=== PATIENT | male | born 1985 | race African-American/Black ===

== ENCOUNTER 2016-10-05 10:34 | Emergency (ER) | payer OTHER ==
[~2016-10-05] VITALS: Ht 170.2 cm; Wt 102.2 kg
[2016-10-05 10:41] VITALS: TEMP 36.8; Ht 170.2 cm; Wt 102.2 kg
[2016-10-05] MEDS ORDERED: MoRPHine SULFATE 4 MG/ML 1 ML CARP\\VIAL IV STA (11:02)
[2016-10-05] MEDS ORDERED: ONDANSETRON INJ 2 MG/ML 2 ML VIAL IV STA (11:02)
[2016-10-05] MEDS ORDERED: ESCI1TAB10 PO (11:03)
[2016-10-05] MEDS ORDERED: ARIP1TAB8 PO (11:03)
[2016-10-05] MEDS ORDERED: CALC625T4 PO (11:03)
[2016-10-05] MEDS ORDERED: BNT20 PO (11:03)
[2016-10-05 11:22] LABS: BASO % 0.2 %; BASO ABS # 0.01 K/uL (0-0.2); COMPLETE YES; EOS % 1.5 %; HEMATOCRIT 40.9 % (42-52); IG% 0.4 %; LYMPH ABS # 1.62 K/uL (1.2-3.4); MEAN CELL VOLUME 86.3 fL (80-100); MEAN CORPUSCULAR HEMOGLOBIN 29.3 pg (25-34); MEAN PLATELET VOLUME 9.2 fL (7.4-10.4); MONO % 5.9 %; PLATELET COUNT 249 K/uL (130-400); RED BLOOD COUNT 4.74 M/uL (4.7-6.1); WHITE BLOOD COUNT 5.22 K/uL (4.8-10.8)
[2016-10-05 12:15] LABS: ALKALINE PHOSPHATASE 102 U/L (45-117); ALT/SGPT 29 U/L (12-78); BLOOD UREA NITROGEN 14 mg/dl (7-18); BUN/CREATININE RATIO 14.4 (10-20); CALCIUM 9.8 mg/dl (8.5-10.1); CARBON DIOXIDE 23 mmol/L (21-32); CHLORIDE 102 mmol/L (98-107); CREATININE 0.96 mg/dl (0.60-1.40); GLUCOSE 95 mg/dl (70-99); SODIUM 138 mmol/L (136-145)
[2016-10-05] MEDS ORDERED: OPTIRAY 320 IV PRN (12:15)
[2016-10-05 13:09] LABS: AST/SGOT 17 U/L (15-37)
[2016-10-05 14:47] LABS: URINE APPEARANCE CLEAR (CLEAR); URINE BILIRUBIN NEG (NEG); URINE COLOR YELLOW; URINE NITRITE NEG (NEG); URINE PH 5.5 (4.5-7.5); URINE SPECIFIC GRAVITY 1.006 (1.000-1.030); UROBILINOGEN NEG (NEG)
--- NOTE | 2016-10-05 14:57 | DIAGNOSTIC IMAGING REPORT ---
ABDOMEN AND PELVIS CT WITH IV AND ORAL CONTRAST CT DOSE: 661.56 mGy.cm HISTORY: Right lower quadrant abdominal pain. TECHNIQUE: Multiaxial CT images of the abdomen and pelvis were performed following the use of intravenous and oral contrast. COMPARISON STUDY: None. FINDINGS: The lung bases are clear. The liver, spleen, gallbladder, pancreas, kidneys, and adrenal glands are within normal limits. No bowel wall thickening or obstruction. The pelvic organs are unremarkable. No suspicious lytic or blastic osseous lesions. Small fat-containing umbilical hernia. A right spermatic cord is not identified raising the possibility of prior right-sided orchiectomy. Normal appendix. IMPRESSION: No bowel wall thickening or obstruction. Normal appendix. Electronically signed by: Mark Maciel M.D. 10/05/2016 2:55 PM Dictated Date/Time: 10/05/2016 2:46 PM
[2016-10-05 15:06] LABS: MANUAL MICROSCOPIC REQUIRED? NO; REVIEW REQ? NO
[2016-10-05 16:06] VITALS: BP 143/95; PULSE 78; O2SAT 98
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
== END 2016-10-05 16:08 | disposition home or self-care (01) ==
LOC: C.EDB 10:39 → C.EDC 16:08
DX: R10.31 Right lower quadrant pain (principal); F32.9 Major depressive disorder, single episode, unspecified; Z79.899 Other long term (current) drug therapy; K43.9 Ventral hernia without obstruction or gangrene

== ENCOUNTER 2019-01-10 15:26 | Inpatient (IN) ==
[2019-01-10] MEDS ORDERED: MoRPHine SULFATE 4 MG/ML 1 ML CARP\\VIAL IV PRN (15:41)
[2019-01-10] MEDS ORDERED: ONDANSETRON INJ 2 MG/ML 2 ML VIAL IV STA (15:41)
[2019-01-10] MEDS ORDERED: SODIUM CHLORIDE 0.9% 1000ML 1,000 ML IV SCH ×2 (15:45→18:40)
--- NOTE | 2019-01-10 15:58 | XRay Report ---
XR chest 1V portable CLINICAL HISTORY: abd pain pain COMPARISON STUDY: No previous studies for comparison. FINDINGS: The bones soft tissues and hemidiaphragms are normal. The cardiomediastinal silhouette is n ormal. The lungs are clear. The pulmonary vasculature is normal. IMPRESSION: Negative chest. The above report was generated using voice recognition software. It may contain grammatical, syntax or spelling errors. Electronically signed by: Balaji Puente M.D. 01/10/2019 3:56 PM
[2019-01-10 16:27] LABS: iSTAT Ionized Calcium 1.19 mmol/l (1.12-1.32); iSTAT Potassium 5.4 mEq/L (3.3-5.0)
[2019-01-10 16:44] LABS: Basophils # (auto) 0.03 K/uL (0-0.2); Basophils % (auto) 0.3 %; Eosinophils # (auto) 0.02 K/uL (0-0.5); Eosinophils % (auto) 0.2 %; Hematocrit (blood only) 48.1 % (42-52); Hemoglobin 17.3 g/dL (14.0-18.0); Immature Granulocytes # (auto) 0.01 K/uL (0.00-0.02); Immature Granulocytes % (auto) 0.1 %; Lymphocytes # (auto) 1.57 K/uL (1.2-3.4); Lymphocytes % (auto) 17.3 %; Mean Corpuscular Volume 84.1 fL (80-100); Mean Platelet Volume 11.1 fL (7.4-10.4); Monocytes # (auto) 0.54 K/uL (0.11-0.59); Neutrophils # (auto) 6.89 K/uL (1.4-6.5); Neutrophils % (auto) 76.1 %; Platelet Count 267 K/uL (130-400); RDW Coefficient of Variation 12.4 % (11.5-14.5); RDW Standard Deviation 37.5 fL (36.4-46.3); Red Blood Count 5.72 M/uL (4.7-6.1); White Blood Count 9.06 K/uL (4.8-10.8)
[2019-01-10] MEDS ORDERED: IOVERSOL 100ml IV PRN (16:44)
--- NOTE | 2019-01-10 17:02 | CT Scan Report ---
CT abd pelvis IV con only CLINICAL HISTORY: Abdominal pain and vomiting COMPARISON STUDY: 10/05/2016 TECHNIQUE: The patient was scanned in a dynamic helical fashion during intravenous administration of 93 cc Optiray 320. A dose lowering technique was utilized adhering to the principles of ALARA. CT DOSE: 347.19 mGy.cm FINDINGS: Lower chest: The heart is normal in size and configuration, without pericardial effusion. The lung ba ses and pleural spaces are clear. Liver: The contrast-enhanced liver is normal in size, contour, and attenuation. There is no intrahepa tic biliary ductal dilatation. The hepatic veins and portal veins are patent. Gallbladder: Unremarkable. Spleen: Normal in size and attenuation. Pancreas: Unremarkable. Adrenal glands: Unremarkable. Kidneys: There is symmetric renal cortical enhancement. The kidneys are normal in size without hydron ephrosis. Bowel: There are no transition zones indicate bowel obstruction. The appendix appears normal. There i s no acute diverticulitis. Peritoneum: There is no intraperitoneal free air or abdominal ascites. There is a small fat-containin g umbilical hernia which contains a knuckle of small bowel. This is nonobstructing. There is rectus d iastases. Vasculature: The abdominal aorta is normal in course and caliber. Adenopathy: None. Pelvic viscera: The bladder, and pelvic viscera are unremarkable. Skeletal structures: No destructive osseous lesions are seen. IMPRESSION: 1. No acute intra-abdominal or pelvic findings 2. No evidence of bowel obstruction. No evidence of free air 3. Normal appendix. No evidence of diverticulitis. 4. Rectus diastases. Small fat-containing umbilical hernia containing a knuckle of small bowel. There is no current evidence of obstruction Electronically signed by: Elvis Zuluaga M.D. 01/10/2019 5:01 PM
[2019-01-10] MEDS ORDERED: SODIUM CHLORIDE 0.9% 1000ML 1,000 ML IV ONE (17:05)
[2019-01-10] MEDS ORDERED: NovoLIN-R INSULIN PER UNIT CHARGE IV STA (17:10)
[2019-01-10 17:11] LABS: Alanine Aminotransferase 25 U/L (12-78); Albumin Globulin Ratio 0.9 (0.9-2); Albumin Level 4.5 gm/dl (3.4-5.0); Alkaline Phosphatase 123 U/L (45-117); BUN Creatinine Ratio 15.4 (10-20); Bilirubin,Total 0.6 mg/dl (0.2-1); Blood Urea Nitrogen 23 mg/dl (7-18); Calcium 9.9 mg/dl (8.5-10.1); Carbon Dioxide 14 mmol/L (21-32); Chloride 104 mmol/L (98-107); Creatinine Clr Calc Pharmacy 72.2 ml/min; Est GFR (African American) 69.8; Est GFR (Non-African American) 60.2; Globulin 5.1 gm/dl (2.5-4.0); Glucose 407 mg/dl (70-99); Sodium 132 mmol/L (136-145); Total Protein 9.6 gm/dl (6.4-8.2)
[2019-01-10 17:26] LABS: Aspartate Aminotransferase 14 U/L (15-37)
--- NOTE | 2019-01-10 18:13 | Emergency Department Note ---
Entered by Glo Madera acting as a scribe for Catarino Young DO History of Present Illness General Chief complaint: Abdominal Pain Stated complaint: VOMITING,ABD PAIN,R/O BOWEL OBSTRUCTION Source: patient History of Present Illness Provider complaint: vomiting Onset (ago): hour(s) (today) Location: left and right Maximum Pain Intensity: 9 Quality: + other (vomiting) Associated symptoms: + other (abdominal pain, generalized pain ) The patient is a 33 year old female who presents to the Emergency Department with complaints of vomiting today. The patient states that he has had this in the past and states that he had gastroenteritis at this time. He denies vomiting blood. He reports having generalized pain and abdominal pain, but denies having fevers or chills. He states that his last bowel movement was 3 days ago. The patient reports a history of stomach surgery for cancer. The patient states that he did not have a bowel obstruction after his surgery. He states that he was evaluated at the [place] [facility] but states that he was sent here as he was unable to get blood work and an X-Ray done at the [place] [facility]. Home Medications Home Medications Medication Instructions Recorded Confirmed Type chlorpromazine 50 mg PO HS 01/10/19 01/10/19 History escitalopram oxalate 30 mg PO DAILY 01/10/19 01/10/19 History lithium carbonate 450 mg PO HS 01/10/19 01/10/19 History ranitidine HCl 150 mg PO BID 01/10/19 01/10/19 History Allergies Allergy/AdvReac Type Severity Reaction Status Date / Time shellfish derived Allergy Intermediate throat Verified 01/10/19 17:57 closes Past Med/Surg History Medical History Major depression with psychotic features (Chronic) Dissociative identity disorder (Chronic) PTSD (post-traumatic stress disorder) (Chronic) History of stomach cancer (Chronic) age 17 Depression (Chronic) Stomach cancer (Acute) Surgical History S/P gastric surgery (Chronic) hx of removal of stomach cancer at age 17 per pt. Family History Mother Diabetes Brother Diabetes Aunt Diabetes Social History Preferred Language: Tajik Communication Ability: Effective Relief Pharmacist Required: No Beliefs That Will Affect Care: Yazidism Current Living Situation: Other Current Living Situation Comment: prisoner Other Information That Helps Us Care for You: No Feels Safe at Home: No Safety Concerns: Feels Safe At This Time Smoking Status: Never smoker Do You Dip or Chew Tobacco: No Second Hand Exp osure: No Tobacco Cessation Education Requested by Patient: No Hx Alcohol Use: No Hx Substance Use: No Review of Systems See HPI for pertinent positives & negatives. and A total of 10 systems reviewed and were otherwise negative Physical Exam Vital Signs Vital Signs - 24 hr 01/10/19 15:35 01/10/19 16:43 01/10/19 17:30 Temperature 36.5 C Temperature Source Oral Sepsis Recent Fever Within 48 Hours No Sepsis New/Unexplained Change in Mental Status No Sepsis Action Taken by Nursing No Action Required Pulse Rate 106 H Pulse Rate [Apical] 90 Pulse Rate from SpO2 Sensor Pulse Rhythm Regular Pulse Rhythm [Apical] Pulse Strength Normal Pulse Strength [Apical] Respiratory Rate 18 16 Respiratory Effort / Characteristics Non-Labored Spontaneous Respiratory Depth Normal Respiratory Pattern Regular Blood Pressure 130/84 Blood Pressure [Left Arm] Blood Pressure [Right Arm] 143/92 H Blood Pressure Mean 99 Blood Pressure Mean [Left Arm] Blood Pressure Mean [Right Arm] 109 Blood Pressure Position Sitting Blood Pressure Position [Left Arm] Blood Pressure Position [Right Arm] Pulse Oximetry 97 97 97 Pulse Oximetry [Left Index Finger] Oxygen Delivery Method Room Air Room Air Room Air Oxygen Delivery Method [Left Index Finger] 01/10/19 18:50 01/10/19 19:24 01/10/19 20:09 Temperature 36.8 C Temperature Source Oral Sepsis Recent Fever Within 48 Hours Sepsis New/Unexplained Change in Mental Status Sepsis Action Taken by Nursing Pulse Rate 90 85 Pulse Rate [Apical] 88 Pulse Rate from SpO2 Sensor 90 Pulse Rhythm Pulse Rhythm [Apical] Regular Pulse Strength Pulse Strength [Apical] Normal Respiratory Rate 20 19 20 Respiratory Effort / Characteristics Non-Labored Respiratory Depth Normal Respiratory Pattern Blood Pressure 138/83 Blood Pressure [Left Arm] Blood Pressure [Right Arm] 126/95 Blood Pressure Mean Blood Pressure Mean [Left Arm] Blood Pressure Mean [Right Arm] 105 Blood Pressure Position Blood Pressure Position [Left Arm] Blood Pressure Position [Right Arm] Lying Pulse Oximetry 96 99 99 Pulse Oximetry [Left Index Finger] Oxygen Delivery Method Room Air Room Air Oxygen Delivery Method [Left Index Finger] 01/10/19 21:04 01/10/19 21:15 04/25/19 00:13 Temperature 36.8 C 36.6 C Temperature Source Oral Oral Sepsis Recent Fever Within 48 Hours Sepsis New/Unexplained Change in Mental Status Sepsis Action Taken by Nursing Pulse Rate Pulse Rate [Apical] 88 85 Pulse Rate from SpO2 Sensor Pulse Rhythm Pulse Rhythm [Apical] Regular Pulse Strength Pulse Strength [Apical] Normal Respiratory Rate 18 18 Respiratory Effort / Characteristics Non-Labored Respiratory Depth Normal Respiratory Pattern Regular Blood Pressure Blood Pressure [Left Arm] 134/86 Blood Pressure [Right Arm] 126/95 Blood Pressure Mean Blood Pressure Mean [Left Arm] 102 Blood Pressure Mean [Right Arm] 105 Blood Pressure Position Blood Pressure Position [Left Arm] Blood Pressure Position [Right Arm] Lying Pulse Oximetry 99 Pulse Oximetry [Left Index Finger] 99 Oxygen Delivery Method Room Air Room Air Oxygen Delivery Method [Left Index Finger] Room Air 01/11/19 00:34 01/11/19 03:25 01/11/19 07:26 Temperature 36.9 C 36.5 C Temperature Source Oral Oral Sepsis Recent Fever Within 48 Hours Sepsis New/Unexplained Change in Mental Status Sepsis Action Taken by Nursing Pulse Rate 83 Pulse Rate [Apical] 81 73 Pulse Rate from SpO2 Sensor Pulse Rhythm Pulse Rhythm [Apical] Pulse Strength Pulse Strength [Apical] Respiratory Rate 18 18 Respiratory Effort / Characteristics Respiratory Depth Respiratory Pattern Blood Pressure Blood Pressure [Left Arm] 127/83 130/88 Blood Pressure [Right Arm] Blood Pressure Mean Blood Pressure Mean [Left Arm] 97 102 Blood Pressure Mean [Right Arm] Blood Pressure Position Blood Pressure Position [Left Arm] Lying Blood Pressure Position [Right Arm] Pulse Oximetry 99 95 Pulse Oximetry [Left Index Finger] Oxygen Delivery Method Room Air Room Air Oxygen Delivery Method [Left Index Finger] GENERAL: Patient is awake, alert, and in no acute distress.Patient is resting comfortably and showing no signs of anxiety EYES: The conjunctivae are clear. The pupils are round and reactive. EARS, NOSE, MOUTH AND THROAT: The nose is without any evidence of any deformity. Mucous membranes are moist.Tongue is midline NECK: The neck is nontender and supple. RESPIRATORY: Normal respiratory effort is noted. There is no evidence of wheezing rhonchi or rales to auscultation. CARDIOVASCULAR: Regular rate and rhythm noted. There no murmurs rubs or gallops normal S1 normal S2 GASTROINTESTINAL: The abdomen is soft. Bowel sounds are present in all quadrants. There is diffuse abdominal tenderness. No guarding or rigidity. MUSCULOSKELETAL/EXTREMITIES: There is no evidence of gross deformity. Full range of motion is noted in the hips and shoulders. SKIN: There is no obvious evidence of any rash. There are no petechiae, pallor or cyanosis noted. NEUROLOGIC: Patient is awake alert and oriented x3. Strength is symmetric. Patellar reflexes are 2+ bilaterally. Course 1541: The patient was evaluated in room C12B. A history and physical exam were performed. 1722: I updated the patient who verbalized agreement and understanding of the treatment plan. 1737: I discussed the patient's case with Emperatriz Keyes who willl evaluate the patient for further management. Consultations Consultation #1: Emperatriz Keyes Time: 17:37 Administered Medications Chlorpromazine HCl (Thorazine) 50 mg PO HS ROZINA Stop: 02/09/19 21:03 Last Admin: 01/10/19 22:40 Dose: Not Given Documented by: [id number] Escitalopram Oxalate (Lexapro) 30 mg PO DAILY ROZINA Stop: 02/10/19 08:59 Last Admin: 01/11/19 07:34 Dose: 30 mg Documented by: [id number] Insulin Human Regular 250 (units/ Sodium Chloride) 250 mls @ 1.9 mls/hr IV .Q24H ROZINA; Protocol Stop: 02/09/19 18:39 Last Titration: 01/11/19 09:18 Dose: 3.2 units/hr, 3.2 mls/hr Documented by: [id number] Cosigned by: [id number] Titration: 01/11/19 08:29 Dose: 2.7 units/hr, 2.7 mls/hr Documented by: [id number] Cosigned by: [id number] Titration: 01/11/19 07:15 Dose: 1.9 units/hr, 1.9 mls/hr Documented by: [id number] Cosigned by: [id number] Titration: 01/11/19 06:15 Dose: 1.9 units/hr, 1.9 mls/hr Documented by: [id number] Cosigned by: [id number] Titration: 01/11/19 05:15 Dose: 1.9 units/hr, 1.9 mls/hr Documented by: [id number] Cosigned by: [id number] Titration: 01/11/19 03:15 Dose: 1.6 units/hr, 1.6 mls/hr Documented by: [id number] Cosigned by: [id number] Titration: 01/11/19 01:15 Dose: 1.6 units/hr, 1.6 mls/hr Documented by: [id number] Cosigned by: [id number] Titration: 01/11/19 00:15 Dose: 1.6 units/hr, 1.6 mls/hr Documented by: [id number] Cosigned by: [id number] Titration: 01/10/19 23:15 Dose: 1.6 units/hr, 1.6 mls/hr Documented by: [id number] Cosigned by: [id number] Titration: 01/10/19 23:04 Dose: 1.6 units/hr, 1.6 mls/hr Documented by: [id number] Cosigned by: [id number] Titration: 01/10/19 22:17 Dose: 1.6 units/hr, 1.6 mls/hr Documented by: [id number] Cosigned by: [id number] Titration: 01/10/19 20:27 Dose: 2 units/hr, 2 mls/hr Documented by: [id number] Cosigned by: [id number] Admin: 01/10/19 19:42 Dose: 2 units/hr, 2 mls/hr Documented by: [id number] Cosigned by: [id number] Potassium Chloride/Dextrose/Sod Cl (D5w And 1/2nss + 20meq Kcl) 20 meq in 1,000 mls @ 150 mls/hr IV .Q6H40M ROZINA Stop: 02/09/19 21:59 Last Admin: 01/11/19 05:12 Dose: 150 mls/hr Documented by: [id number] Infusion: 01/11/19 05:12 Dose: 150 mls/hr Documented by: [id number] Admin: 01/10/19 22:36 Dose: 150 mls/hr Documented by: [id number] Insulin Aspart (Novolog Flexpen) 0 units SC PCHS ROZINA Stop: 02/09/19 20:59 Last Admin: 01/11/19 07:36 Dose: 4 units Documented by: [id number] Cosigned by: [id number] Admin: 01/10/19 22:35 Dose: Not Given Documented by: [id number] Cosigned by: [id number] [place] Carbonate (Eskalith) 450 mg PO HS ROZINA Stop: 02/09/19 21:03 Last Admin: 01/10/19 22:39 Dose: Not Given Documented by: [id number] Ranitidine HCl (Zantac) 150 mg PO BID ROZINA Stop: 02/09/19 21:03 Last Admin: 01/11/19 07:34 Dose: 150 mg Documented by: [id number] Admin: 01/10/19 22:37 Dose: 150 mg Documented by: [id number] Discontinued Medications Bisacodyl (Dulcolax) 10 mg TX NOW STA Stop: 01/10/19 21:36 Last Admin: 01/10/19 21:58 Dose: 10 mg Documented by: [id number] Sodium Chloride (Nss 1000ml) 1,000 mls @ 999 mls/hr IV .Q1H1M ROZINA Stop: 01/10/19 16:45 Last Infusion: 01/10/19 17:36 Dose: 0 mls/hr Documented by: [id number] Admin: 01/10/19 16:34 Dose: 999 mls/hr Documented by: [id number] Sodium Chloride (Nss 1000ml) 1,000 mls @ 999 mls/hr IV .Q1H1M ONE Stop: 01/10/19 18:05 Last Infusion: 01/10/19 18:23 Dose: 0 mls/hr Documented by: [id number] Admin: 01/10/19 17:10 Dose: 999 mls/hr Documented by: [id number] Sodium Chloride (Nss 1000ml) 1,000 mls @ 200 mls/hr IV .Q5H ROZINA Stop: 02/09/19 18:39 Last Infusion: 01/10/19 22:42 Dose: 0 mls/hr Documented by: [id number] Admin: 01/10/19 20:53 Dose: 200 mls/hr Documented by: [id number] Insulin Human Regular (Novolin R U-100 Per Unit) 4 units IV NOW STA Stop: 01/10/19 17:11 Last Admin: 01/10/19 17:17 Dose: 4 units Documented by: [id number] Cosigned by: [id number] Insulin Human Regular (Novolin R Bolus From Bag) 2 units IV ONE ONE Stop: 01/10/19 19:16 Last Admin: 01/10/19 19:42 Dose: 2 units Documented by: [id number] Cosigned by: [id number] Ioversol (Optiray 320 100ml) 93 ml IV ONCE PRN PRN Reason: Interaction Checking Stop: 01/14/19 16:43 Last Admin: 01/10/19 16:44 Dose: 93 ml Documented by: [id number] Miscellaneous Information (Consult Glycemic Management Pharmacy) 1 ea N/A NOW STA Stop: 01/10/19 18:41 Last Admin: 01/10/19 22:35 Dose: 1 ea Documented by: [id number] Morphine Sulfate (Morphine Sulfate) 4 mg IV Q15M PRN PRN Reason: Pain Stop: 01/24/19 15:40 Last Admin: 01/10/19 16:38 Dose: 4 mg Documented by: [id number] Ondansetron HCl (Zofran) 4 mg IV NOW STA Stop: 01/10/19 15:42 Last Admin: 01/10/19 16:38 Dose: 4 mg Documented by: [id number] Medical Decision Making Differential Diagnosis Differential diagnosis: Etiologies such as biliary colic, cholecystitis, hepatitis, pancreatitis, cardiac disease, pancreatitis, gastritis, peptic ulcer disease, appendicitis, cystitis, diverticulitis, mesenteric ischemia, inflammatory bowel disease, ileus, bowel obstruction, testicular torsion, aortic pathology, shingles, as well as others were considered. Medical Records Attestation: I reviewed the patient's medical records. Home Medications Current Medication List: was personally reviewed by me Laboratory Data Attestation: I reviewed the patient's lab results. Result diagrams: 01/11/19 04:07 01/11/19 04:07 Lab Results 01/10/19 01/10/19 01/10/19 Range/Units 16:15 16:30 16:30 WBC 9.06 (4.8-10.8) K/uL RBC 5.72 (4.7-6.1) M/uL Hgb 17.3 (14.0-18.0) g/dL POC Hgb 18.0 (14.0-18.0) g/dl Hct 48.1 (42-52) % POC Hct 53 H (42-52) % MCV 84.1 (80-100) fL MCH 30.2 (25-34) pg MCHC 36.0 (32-36) g/dL RDW Std Deviation 37.5 (36.4-46.3) fL RDW Coeff of Kirstie 12.4 (11.5-14.5) % Plt Count 267 (130-400) K/uL MPV 11.1 H (7.4-10.4) fL Immature Gran % (Auto) 0.1 % Neut % (Auto) 76.1 % Lymph % (Auto) 17.3 % [place] % (Auto) 6.0 % Eos % (Auto) 0.2 % Baso % (Auto) 0.3 % Immature Gran # (Auto) 0.01 (0.00-0.02) K/uL Neut # (Auto) 6.89 H (1.4-6.5) K/uL Lymph # (Auto) 1.57 (1.2-3.4) K/uL [place] # (Auto) 0.54 (0.11-0.59) K/uL Eos # (Auto) 0.02 (0-0.5) K/uL Baso # (Auto) 0.03 (0-0.2) K/uL VBG pH (7.36-7.41) VBG pCO2 (38-50) mmHg VBG pO2 mmHg VBG HCO3 mmol/L VBG O2 Saturation % VBG Base Excess mEq/L Barometric Pressure mm/Hg POC Sodium 137 (135-144) mEq/L Sodium 132 L (136-145) mmol/L POC Potassium 5.4 H (3.3-5.0) mEq/L Potassium 5.0 (3.5-5.1) mmol/L POC Chloride 108 (101-112) mEq/L Chloride 104 (98-107) mmol/L Carbon Dioxide 14 L (21-32) mmol/L POC Total CO2 13 L (24-31) mEq/l Anion Gap 17.0 H (3-11) POC Anion Gap 23.0 (16-25) mmol/L POC BUN 31 H (7-18) mg/dl BUN 23 H (7-18) mg/dl Creatinine 1.51 H (0.6-1.4) mg/dl POC Creatinine 1.0 (0.6-1.3) mg/dl Est Cr Clr Drug Dosing 72.2 ml/min Est GFR ( Amer) 69.8 Est GFR (Non-Af Amer) 60.2 BUN/Creatinine Ratio 15.4 (10-20) Glucose 407 H* (70-99) mg/dl POC Glucose (70-99) POC Glucose (other) 451 H* (70-99) mg/dl Estimat Average Glucose mg/dl Hemoglobin A1c (4.5-5.6) % Lactate (0.4-2.0) mmol/L Calcium 9.9 (8.5-10.1) mg/dl POC Ioniz Calcium Ant 1.19 (1.12-1.32) mmol/l Phosphorus (2.5-4.9) mg/dl Magnesium (1.8-2.4) mg/dl Total Bilirubin 0.6 (0.2-1) mg/dl AST 14 L (15-37) U/L ALT 25 (12-78) U/L Alkaline Phosphatase 123 H (45-117) U/L Troponin I (0-0.045) ng/ml Total Protein 9.6 H (6.4-8.2) gm/dl Albumin 4.5 (3.4-5.0) gm/dl Globulin 5.1 H (2.5-4.0) gm/dl Albumin/Globulin Ratio 0.9 (0.9-2) Triglycerides (0-150) mg/dl Cholesterol (0-200) mg/dl LDL Cholesterol, Calc mg/dl VLDL Cholesterol, Calc mg/dl HDL Cholesterol mg/dl Cholesterol/HDL Ratio Lipase 71 L (73-393) U/L Beta-Hydroxybutyric Acd TNP Specimen Hemolysis Nasal Screen MRSA (PCR) (Negative) [place] (0.6-1.2) mmol/L 01/10/19 01/10/19 01/10/19 Range/Units 17:59 18:59 19:19 WBC (4.8-10.8) K/uL RBC (4.7-6.1) M/uL Hgb (14.0-18.0) g/dL POC Hgb (14.0-18.0) g/dl Hct (42-52) % POC Hct (42-52) % MCV (80-100) fL MCH (25-34) pg MCHC (32-36) g/dL RDW Std Deviation (36.4-46.3) fL RDW Coeff of Kirstie (11.5-14.5) % Plt Count (130-400) K/uL MPV (7.4-10.4) fL Immature Gran % (Auto) % Neut % (Auto) % Lymph % (Auto) % [place] % (Auto) % Eos % (Auto) % Baso % (Auto) % Immature Gran # (Auto) (0.00-0.02) K/uL Neut # (Auto) (1.4-6.5) K/uL Lymph # (Auto) (1.2-3.4) K/uL [place] # (Auto) (0.11-0.59) K/uL Eos # (Auto) (0-0.5) K/uL Baso # (Auto) (0-0.2) K/uL VBG pH 7.19 L (7.36-7.41) VBG pCO2 39 (38-50) mmHg VBG pO2 37 mmHg VBG HCO3 14 mmol/L VBG O2 Saturation 64.9 % VBG Base Excess -13.1 mEq/L Barometric Pressure 728.7 mm/Hg POC Sodium (135-144) mEq/L Sodium (136-145) mmol/L POC Potassium (3.3-5.0) mEq/L Potassium (3.5-5.1) mmol/L POC Chloride (101-112) mEq/L Chloride (98-107) mmol/L Carbon Dioxide (21-32) mmol/L POC Total CO2 (24-31) mEq/l Anion Gap (3-11) POC Anion Gap (16-25) mmol/L POC BUN (7-18) mg/dl BUN (7-18) mg/dl Creatinine (0.6-1.4) mg/dl POC Creatinine (0.6-1.3) mg/dl Est Cr Clr Drug Dosing ml/min Est GFR ( Amer) Est GFR (Non-Af Amer) BUN/Creatinine Ratio (10-20) Glucose (70-99) mg/dl POC Glucose 265 H (70-99) POC Glucose (other) (70-99) mg/dl Estimat Average Glucose mg/dl Hemoglobin A1c (4.5-5.6) % Lactate 1.9 (0.4-2.0) mmol/L Calcium (8.5-10.1) mg/dl POC Ioniz Calcium Ant (1.12-1.32) mmol/l Phosphorus (2.5-4.9) mg/dl Magnesium (1.8-2.4) mg/dl Total Bilirubin (0.2-1) mg/dl AST (15-37) U/L ALT (12-78) U/L Alkaline Phosphatase (45-117) U/L Troponin I (0-0.045) ng/ml Total Protein (6.4-8.2) gm/dl Albumin (3.4-5.0) gm/dl Globulin (2.5-4.0) gm/dl Albumin/Globulin Ratio (0.9-2) Triglycerides (0-150) mg/dl Cholesterol (0-200) mg/dl LDL Cholesterol, Calc mg/dl VLDL Cholesterol, Calc mg/dl HDL Cholesterol mg/dl Cholesterol/HDL Ratio Lipase (73-393) U/L Beta-Hydroxybutyric Acd Specimen Hemolysis Nasal Screen MRSA (PCR) (Negative) [place] (0.6-1.2) mmol/L 01/10/19 01/10/19 01/10/19 Range/Units 20:15 20:15 20:15 WBC (4.8-10.8) K/uL RBC (4.7-6.1) M/uL Hgb (14.0-18.0) g/dL POC Hgb (14.0-18.0) g/dl Hct (42-52) % POC Hct (42-52) % MCV (80-100) fL MCH (25-34) pg MCHC (32-36) g/dL RDW Std Deviation (36.4-46.3) fL RDW Coeff of Kirstie (11.5-14.5) % Plt Count (130-400) K/uL MPV (7.4-10.4) fL Immature Gran % (Auto) % Neut % (Auto) % Lymph % (Auto) % [place] % (Auto) % Eos % (Auto) % Baso % (Auto) % Immature Gran # (Auto) (0.00-0.02) K/uL Neut # (Auto) (1.4-6.5) K/uL Lymph # (Auto) (1.2-3.4) K/uL [place] # (Auto) (0.11-0.59) K/uL Eos # (Auto) (0-0.5) K/uL Baso # (Auto) (0-0.2) K/uL VBG pH 7.22 L (7.36-7.41) VBG pCO2 (38-50) mmHg VBG pO2 mmHg VBG HCO3 mmol/L VBG O2 Saturation % VBG Base Excess mEq/L Barometric Pressure mm/Hg POC Sodium (135-144) mEq/L Sodium 143 D (136-145) mmol/L POC Potassium (3.3-5.0) mEq/L Potassium 4.3 (3.5-5.1) mmol/L POC Chloride (101-112) mEq/L Chloride 113 H (98-107) mmol/L Carbon Dioxide 16 L (21-32) mmol/L POC Total CO2 (24-31) mEq/l Anion Gap 14.0 H (3-11) POC Anion Gap (16-25) mmol/L POC BUN (7-18) mg/dl BUN 19 H (7-18) mg/dl Creatinine 1.21 D (0.6-1.4) mg/dl POC Creatinine (0.6-1.3) mg/dl Est Cr Clr Drug Dosing 90.1 ml/min Est GFR ( Amer) 91.3 Est GFR (Non-Af Amer) 78.7 BUN/Creatinine Ratio 15.7 (10-20) Glucose 238 H (70-99) mg/dl POC Glucose (70-99) POC Glucose (other) (70-99) mg/dl Estimat Average Glucose mg/dl Hemoglobin A1c (4.5-5.6) % Lactate (0.4-2.0) mmol/L Calcium 9.1 (8.5-10.1) mg/dl POC Ioniz Calcium Ant (1.12-1.32) mmol/l Phosphorus 3.1 (2.5-4.9) mg/dl Magnesium 2.4 (1.8-2.4) mg/dl Total Bilirubin (0.2-1) mg/dl AST (15-37) U/L ALT (12-78) U/L Alkaline Phosphatase (45-117) U/L Troponin I < 0.015 (0-0.045) ng/ml Total Protein (6.4-8.2) gm/dl Albumin (3.4-5.0) gm/dl Globulin (2.5-4.0) gm/dl Albumin/Globulin Ratio (0.9-2) Triglycerides (0-150) mg/dl Cholesterol (0-200) mg/dl LDL Cholesterol, Calc mg/dl VLDL Cholesterol, Calc mg/dl HDL Cholesterol mg/dl Cholesterol/HDL Ratio Lipase (73-393) U/L Beta-Hydroxybutyric Acd Specimen Hemolysis Nasal Screen MRSA (PCR) (Negative) [place] 0.2 L (0.6-1.2) mmol/L 01/10/19 01/10/19 01/10/19 Range/Units 20:15 20:58 22:12 WBC (4.8-10.8) K/uL RBC (4.7-6.1) M/uL Hgb (14.0-18.0) g/dL POC Hgb (14.0-18.0) g/dl Hct (42-52) % POC Hct (42-52) % MCV (80-100) fL MCH (25-34) pg MCHC (32-36) g/dL RDW Std Deviation (36.4-46.3) fL RDW Coeff of Kirstie (11.5-14.5) % Plt Count (130-400) K/uL MPV (7.4-10.4) fL Immature Gran % (Auto) % Neut % (Auto) % Lymph % (Auto) % [place] % (Auto) % Eos % (Auto) % Baso % (Auto) % Immature Gran # (Auto) (0.00-0.02) K/uL Neut # (Auto) (1.4-6.5) K/uL Lymph # (Auto) (1.2-3.4) K/uL [place] # (Auto) (0.11-0.59) K/uL Eos # (Auto) (0-0.5) K/uL Baso # (Auto) (0-0.2) K/uL VBG pH (7.36-7.41) VBG pCO2 (38-50) mmHg VBG pO2 mmHg VBG HCO3 mmol/L VBG O2 Saturation % VBG Base Excess mEq/L Barometric Pressure mm/Hg POC Sodium (135-144) mEq/L Sodium (136-145) mmol/L POC Potassium (3.3-5.0) mEq/L Potassium (3.5-5.1) mmol/L POC Chloride (101-112) mEq/L Chloride (98-107) mmol/L Carbon Dioxide (21-32) mmol/L POC Total CO2 (24-31) mEq/l Anion Gap (3-11) POC Anion Gap (16-25) mmol/L POC BUN (7-18) mg/dl BUN (7-18) mg/dl Creatinine (0.6-1.4) mg/dl POC Creatinine (0.6-1.3) mg/dl Est Cr Clr Drug Dosing ml/min Est GFR ( Amer) Est GFR (Non-Af Amer) BUN/Creatinine Ratio (10-20) Glucose (70-99) mg/dl POC Glucose 207 H 166 H (70-99) POC Glucose (other) (70-99) mg/dl Estimat Average Glucose mg/dl Hemoglobin A1c (4.5-5.6) % Lactate (0.4-2.0) mmol/L Calcium (8.5-10.1) mg/dl POC Ioniz Calcium Ant (1.12-1.32) mmol/l Phosphorus (2.5-4.9) mg/dl Magnesium (1.8-2.4) mg/dl Total Bilirubin (0.2-1) mg/dl AST (15-37) U/L ALT (12-78) U/L Alkaline Phosphatase (45-117) U/L Troponin I (0-0.045) ng/ml Total Protein (6.4-8.2) gm/dl Albumin (3.4-5.0) gm/dl Globulin (2.5-4.0) gm/dl Albumin/Globulin Ratio (0.9-2) Triglycerides (0-150) mg/dl Cholesterol (0-200) mg/dl LDL Cholesterol, Calc mg/dl VLDL Cholesterol, Calc mg/dl HDL Cholesterol mg/dl Cholesterol/HDL Ratio Lipase (73-393) U/L Beta-Hydroxybutyric Acd 66.69 H Specimen Hemolysis Nasal Screen MRSA (PCR) (Negative) [place] (0.6-1.2) mmol/L 01/10/19 01/11/19 01/11/19 Range/Units 23:15 00:10 00:10 WBC (4.8-10.8) K/uL RBC (4.7-6.1) M/uL Hgb (14.0-18.0) g/dL POC Hgb (14.0-18.0) g/dl Hct (42-52) % POC Hct (42-52) % MCV (80-100) fL MCH (25-34) pg MCHC (32-36) g/dL RDW Std Deviation (36.4-46.3) fL RDW Coeff of Kirstie (11.5-14.5) % Plt Count (130-400) K/uL MPV (7.4-10.4) fL Immature Gran % (Auto) % Neut % (Auto) % Lymph % (Auto) % [place] % (Auto) % Eos % (Auto) % Baso % (Auto) % Immature Gran # (Auto) (0.00-0.02) K/uL Neut # (Auto) (1.4-6.5) K/uL Lymph # (Auto) (1.2-3.4) K/uL [place] # (Auto) (0.11-0.59) K/uL Eos # (Auto) (0-0.5) K/uL Baso # (Auto) (0-0.2) K/uL VBG pH 7.28 L (7.36-7.41) VBG pCO2 (38-50) mmHg VBG pO2 mmHg VBG HCO3 mmol/L VBG O2 Saturation % VBG Base Excess mEq/L Barometric Pressure mm/Hg POC Sodium (135-144) mEq/L Sodium 141 (136-145) mmol/L POC Potassium (3.3-5.0) mEq/L Potassium 4.1 (3.5-5.1) mmol/L POC Chloride (101-112) mEq/L Chloride 113 H (98-107) mmol/L Carbon Dioxide 20 L (21-32) mmol/L POC Total CO2 (24-31) mEq/l Anion Gap 8.0 (3-11) POC Anion Gap (16-25) mmol/L POC BUN (7-18) mg/dl BUN 17 (7-18) mg/dl Creatinine 1.09 (0.6-1.4) mg/dl POC Creatinine (0.6-1.3) mg/dl Est Cr Clr Drug Dosing 100.0 ml/min Est GFR ( Amer) 103.5 Est GFR (Non-Af Amer) 89.3 BUN/Creatinine Ratio 15.6 (10-20) Glucose 179 H (70-99) mg/dl POC Glucose 166 H (70-99) POC Glucose (other) (70-99) mg/dl Estimat Average Glucose mg/dl Hemoglobin A1c (4.5-5.6) % Lactate (0.4-2.0) mmol/L Calcium 8.5 (8.5-10.1) mg/dl POC Ioniz Calcium Ant (1.12-1.32) mmol/l Phosphorus 2.6 (2.5-4.9) mg/dl Magnesium 2.2 (1.8-2.4) mg/dl Total Bilirubin (0.2-1) mg/dl AST (15-37) U/L ALT (12-78) U/L Alkaline Phosphatase (45-117) U/L Troponin I (0-0.045) ng/ml Total Protein (6.4-8.2) gm/dl Albumin (3.4-5.0) gm/dl Globulin (2.5-4.0) gm/dl Albumin/Globulin Ratio (0.9-2) Triglycerides (0-150) mg/dl Cholesterol (0-200) mg/dl LDL Cholesterol, Calc mg/dl VLDL Cholesterol, Calc mg/dl HDL Cholesterol mg/dl Cholesterol/HDL Ratio Lipase (73-393) U/L Beta-Hydroxybutyric Acd Specimen Hemolysis Nasal Screen MRSA (PCR) (Negative) [place] (0.6-1.2) mmol/L 01/11/19 01/11/19 01/11/19 Range/Units 00:10 01:15 01:22 WBC (4.8-10.8) K/uL RBC (4.7-6.1) M/uL Hgb (14.0-18.0) g/dL POC Hgb (14.0-18.0) g/dl Hct (42-52) % POC Hct (42-52) % MCV (80-100) fL MCH (25-34) pg MCHC (32-36) g/dL RDW Std Deviation (36.4-46.3) fL RDW Coeff of Kirstie (11.5-14.5) % Plt Count (130-400) K/uL MPV (7.4-10.4) fL Immature Gran % (Auto) % Neut % (Auto) % Lymph % (Auto) % [place] % (Auto) % Eos % (Auto) % Baso % (Auto) % Immature Gran # (Auto) (0.00-0.02) K/uL Neut # (Auto) (1.4-6.5) K/uL Lymph # (Auto) (1.2-3.4) K/uL [place] # (Auto) (0.11-0.59) K/uL Eos # (Auto) (0-0.5) K/uL Baso # (Auto) (0-0.2) K/uL VBG pH (7.36-7.41) VBG pCO2 (38-50) mmHg VBG pO2 mmHg VBG HCO3 mmol/L VBG O2 Saturation % VBG Base Excess mEq/L Barometric Pressure mm/Hg POC Sodium (135-144) mEq/L Sodium (136-145) mmol/L POC Potassium (3.3-5.0) mEq/L Potassium (3.5-5.1) mmol/L POC Chloride (101-112) mEq/L Chloride (98-107) mmol/L Carbon Dioxide (21-32) mmol/L POC Total CO2 (24-31) mEq/l Anion Gap (3-11) POC Anion Gap (16-25) mmol/L POC BUN (7-18) mg/dl BUN (7-18) mg/dl Creatinine (0.6-1.4) mg/dl POC Creatinine (0.6-1.3) mg/dl Est Cr Clr Drug Dosing ml/min Est GFR ( Amer) Est GFR (Non-Af Amer) BUN/Creatinine Ratio (10-20) Glucose (70-99) mg/dl POC Glucose 168 H 205 H (70-99) POC Glucose (other) (70-99) mg/dl Estimat Average Glucose mg/dl Hemoglobin A1c (4.5-5.6) % Lactate (0.4-2.0) mmol/L Calcium (8.5-10.1) mg/dl POC Ioniz Calcium Ant (1.12-1.32) mmol/l Phosphorus (2.5-4.9) mg/dl Magnesium (1.8-2.4) mg/dl Total Bilirubin (0.2-1) mg/dl AST (15-37) U/L ALT (12-78) U/L Alkaline Phosphatase (45-117) U/L Troponin I (0-0.045) ng/ml Total Protein (6.4-8.2) gm/dl Albumin (3.4-5.0) gm/dl Globulin (2.5-4.0) gm/dl Albumin/Globulin Ratio (0.9-2) Triglycerides (0-150) mg/dl Cholesterol (0-200) mg/dl LDL Cholesterol, Calc mg/dl VLDL Cholesterol, Calc mg/dl HDL Cholesterol mg/dl Cholesterol/HDL Ratio Lipase (73-393) U/L Beta-Hydroxybutyric Acd Specimen Hemolysis Nasal Screen MRSA (PCR) Negative (Negative) [place] (0.6-1.2) mmol/L 01/11/19 01/11/19 01/11/19 Range/Units 03:19 04:07 04:07 WBC (4.8-10.8) K/uL RBC (4.7-6.1) M/uL Hgb (14.0-18.0) g/dL POC Hgb (14.0-18.0) g/dl Hct (42-52) % POC Hct (42-52) % MCV (80-100) fL MCH (25-34) pg MCHC (32-36) g/dL RDW Std Deviation (36.4-46.3) fL RDW Coeff of Kirstie (11.5-14.5) % Plt Count (130-400) K/uL MPV (7.4-10.4) fL Immature Gran % (Auto) % Neut % (Auto) % Lymph % (Auto) % [place] % (Auto) % Eos % (Auto) % Baso % (Auto) % Immature Gran # (Auto) (0.00-0.02) K/uL Neut # (Auto) (1.4-6.5) K/uL Lymph # (Auto) (1.2-3.4) K/uL [place] # (Auto) (0.11-0.59) K/uL Eos # (Auto) (0-0.5) K/uL Baso # (Auto) (0-0.2) K/uL VBG pH (7.36-7.41) VBG pCO2 (38-50) mmHg VBG pO2 mmHg VBG HCO3 mmol/L VBG O2 Saturation % VBG Base Excess mEq/L Barometric Pressure mm/Hg POC Sodium (135-144) mEq/L Sodium 139 (136-145) mmol/L POC Potassium (3.3-5.0) mEq/L Potassium 4.0 (3.5-5.1) mmol/L POC Chloride (101-112) mEq/L Chloride 110 H (98-107) mmol/L Carbon Dioxide 22 (21-32) mmol/L POC Total CO2 (24-31) mEq/l Anion Gap 7.0 (3-11) POC Anion Gap (16-25) mmol/L POC BUN (7-18) mg/dl BUN 16 (7-18) mg/dl Creatinine 1.23 (0.6-1.4) mg/dl POC Creatinine (0.6-1.3) mg/dl Est Cr Clr Drug Dosing 88.6 ml/min Est GFR ( Amer) 89.5 Est GFR (Non-Af Amer) 77.2 BUN/Creatinine Ratio 12.9 (10-20) Glucose 220 H (70-99) mg/dl POC Glucose 209 H (70-99) POC Glucose (other) (70-99) mg/dl Estimat Average Glucose 269 mg/dl Hemoglobin A1c 11.0 H (4.5-5.6) % Lactate (0.4-2.0) mmol/L Calcium 8.6 (8.5-10.1) mg/dl POC Ioniz Calcium Ant (1.12-1.32) mmol/l Phosphorus 2.2 L (2.5-4.9) mg/dl Magnesium 2.2 (1.8-2.4) mg/dl Total Bilirubin (0.2-1) mg/dl AST (15-37) U/L ALT (12-78) U/L Alkaline Phosphatase (45-117) U/L Troponin I (0-0.045) ng/ml Total Protein (6.4-8.2) gm/dl Albumin (3.4-5.0) gm/dl Globulin (2.5-4.0) gm/dl Albumin/Globulin Ratio (0.9-2) Triglycerides 125 (0-150) mg/dl Cholesterol 293 H (0-200) mg/dl LDL Cholesterol, Calc 222 mg/dl VLDL Cholesterol, Calc 25 mg/dl HDL Cholesterol 46 mg/dl Cholesterol/HDL Ratio 6 Lipase (73-393) U/L Beta-Hydroxybutyric Acd Specimen Hemolysis Nasal Screen MRSA (PCR) (Negative) [place] (0.6-1.2) mmol/L 01/11/19 01/11/19 01/11/19 Range/Units 04:07 05:08 06:11 WBC 7.10 (4.8-10.8) K/uL RBC 4.79 (4.7-6.1) M/uL Hgb 14.1 D (14.0-18.0) g/dL POC Hgb (14.0-18.0) g/dl Hct 40.3 L (42-52) % POC Hct (42-52) % MCV 84.1 (80-100) fL MCH 29.4 (25-34) pg MCHC 35.0 (32-36) g/dL RDW Std Deviation 38.4 (36.4-46.3) fL RDW Coeff of Kirstie 12.6 (11.5-14.5) % Plt Count 239 (130-400) K/uL MPV 10.4 (7.4-10.4) fL Immature Gran % (Auto) 0.1 % Neut % (Auto) 65.4 % Lymph % (Auto) 25.1 % [place] % (Auto) 7.7 % Eos % (Auto) 1.3 % Baso % (Auto) 0.4 % Immature Gran # (Auto) 0.01 (0.00-0.02) K/uL Neut # (Auto) 4.64 (1.4-6.5) K/uL Lymph # (Auto) 1.78 (1.2-3.4) K/uL [place] # (Auto) 0.55 (0.11-0.59) K/uL Eos # (Auto) 0.09 (0-0.5) K/uL Baso # (Auto) 0.03 (0-0.2) K/uL VBG pH (7.36-7.41) VBG pCO2 (38-50) mmHg VBG pO2 mmHg VBG HCO3 mmol/L VBG O2 Saturation % VBG Base Excess mEq/L Barometric Pressure mm/Hg POC Sodium (135-144) mEq/L Sodium (136-145) mmol/L POC Potassium (3.3-5.0) mEq/L Potassium (3.5-5.1) mmol/L POC Chloride (101-112) mEq/L Chloride (98-107) mmol/L Carbon Dioxide (21-32) mmol/L POC Total CO2 (24-31) mEq/l Anion Gap (3-11) POC Anion Gap (16-25) mmol/L POC BUN (7-18) mg/dl BUN (7-18) mg/dl Creatinine (0.6-1.4) mg/dl POC Creatinine (0.6-1.3) mg/dl Est Cr Clr Drug Dosing ml/min Est GFR ( Amer) Est GFR (Non-Af Amer) BUN/Creatinine Ratio (10-20) Glucose (70-99) mg/dl POC Glucose 251 H 235 H (70-99) POC Glucose (other) (70-99) mg/dl Estimat Average Glucose mg/dl Hemoglobin A1c (4.5-5.6) % Lactate (0.4-2.0) mmol/L Calcium (8.5-10.1) mg/dl POC Ioniz Calcium Ant (1.12-1.32) mmol/l Phosphorus (2.5-4.9) mg/dl Magnesium (1.8-2.4) mg/dl Total Bilirubin (0.2-1) mg/dl AST (15-37) U/L ALT (12-78) U/L Alkaline Phosphatase (45-117) U/L Troponin I (0-0.045) ng/ml Total Protein (6.4-8.2) gm/dl Albumin (3.4-5.0) gm/dl Globulin (2.5-4.0) gm/dl Albumin/Globulin Ratio (0.9-2) Triglycerides (0-150) mg/dl Cholesterol (0-200) mg/dl LDL Cholesterol, Calc mg/dl VLDL Cholesterol, Calc mg/dl HDL Cholesterol mg/dl Cholesterol/HDL Ratio Lipase (73-393) U/L Beta-Hydroxybutyric Acd Specimen Hemolysis Nasal Screen MRSA (PCR) (Negative) [place] (0.6-1.2) mmol/L 01/11/19 01/11/19 01/11/19 Range/Units 07:25 08:22 09:16 WBC (4.8-10.8) K/uL RBC (4.7-6.1) M/uL Hgb (14.0-18.0) g/dL POC Hgb (14.0-18.0) g/dl Hct (42-52) % POC Hct (42-52) % MCV (80-100) fL MCH (25-34) pg MCHC (32-36) g/dL RDW Std Deviation (36.4-46.3) fL RDW Coeff of Kirstie (11.5-14.5) % Plt Count (130-400) K/uL MPV (7.4-10.4) fL Immature Gran % (Auto) % Neut % (Auto) % Lymph % (Auto) % [place] % (Auto) % Eos % (Auto) % Baso % (Auto) % Immature Gran # (Auto) (0.00-0.02) K/uL Neut # (Auto) (1.4-6.5) K/uL Lymph # (Auto) (1.2-3.4) K/uL [place] # (Auto) (0.11-0.59) K/uL Eos # (Auto) (0-0.5) K/uL Baso # (Auto) (0-0.2) K/uL VBG pH (7.36-7.41) VBG pCO2 (38-50) mmHg VBG pO2 mmHg VBG HCO3 mmol/L VBG O2 Saturation % VBG Base Excess mEq/L Barometric Pressure mm/Hg POC Sodium (135-144) mEq/L Sodium (136-145) mmol/L POC Potassium (3.3-5.0) mEq/L Potassium (3.5-5.1) mmol/L POC Chloride (101-112) mEq/L Chloride (98-107) mmol/L Carbon Dioxide (21-32) mmol/L POC Total CO2 (24-31) mEq/l Anion Gap (3-11) POC Anion Gap (16-25) mmol/L POC BUN (7-18) mg/dl BUN (7-18) mg/dl Creatinine (0.6-1.4) mg/dl POC Creatinine (0.6-1.3) mg/dl Est Cr Clr Drug Dosing ml/min Est GFR ( Amer) Est GFR (Non-Af Amer) BUN/Creatinine Ratio (10-20) Glucose (70-99) mg/dl POC Glucose 229 H 334 H* 341 H* (70-99) POC Glucose (other) (70-99) mg/dl Estimat Average Glucose mg/dl Hemoglobin A1c (4.5-5.6) % Lactate (0.4-2.0) mmol/L Calcium (8.5-10.1) mg/dl POC Ioniz Calcium Ant (1.12-1.32) mmol/l Phosphorus (2.5-4.9) mg/dl Magnesium (1.8-2.4) mg/dl Total Bilirubin (0.2-1) mg/dl AST (15-37) U/L ALT (12-78) U/L Alkaline Phosphatase (45-117) U/L Troponin I (0-0.045) ng/ml Total Protein (6.4-8.2) gm/dl Albumin (3.4-5.0) gm/dl Globulin (2.5-4.0) gm/dl Albumin/Globulin Ratio (0.9-2) Triglycerides (0-150) mg/dl Cholesterol (0-200) mg/dl LDL Cholesterol, Calc mg/dl VLDL Cholesterol, Calc mg/dl HDL Cholesterol mg/dl Cholesterol/HDL Ratio Lipase (73-393) U/L Beta-Hydroxybutyric Acd Specimen Hemolysis Nasal Screen MRSA (PCR) (Negative) [place] (0.6-1.2) mmol/L Imaging Data Radiologist's Impression: Radiology results as stated below per my review and the radiologist's interpretation: XR chest 1V portable CLINICAL HISTORY: abd pain pain COMPARISON STUDY: No previous studies for comparison. FINDINGS: The bones soft tissues and hemidiaphragms are normal. The card iomediastinal silhouette is normal. The lungs are clear. The pulmonary vasculature is normal. IMPRESSION: Negative chest. The above report was generated using voice recognition software. It may contain grammatical, syntax or spelling errors. Electronically signed by: Balaji Puente M.D. 01/10/2019 3:[address] abd pelvis IV con only CLINICAL HISTORY: Abdominal pain and vomiting COMPARISON STUDY: 10/05/2016 TECHNIQUE: The patient was scanned in a dynamic helical fashion during intravenous administration of 93 cc Optiray 320. A dose lowering technique was utilized adhering to the principles of ALARA. CT DOSE: 347.19 mGy.cm FINDINGS: Lower chest: The heart is normal in size and configuration, without pericardial effusion. The lung bases and pleural spaces are clear. Liver: The contrast-enhanced liver is normal in size, contour, and attenuation. There is no intrahepatic biliary ductal dilatation. The hepatic veins and portal veins are patent. Gallbladder: Unremarkable. Spleen: Normal in size and attenuation. Pancreas: Unremarkable. Adrenal glands: Unremarkable. Kidneys: There is symmetric renal cortical enhancement. The kidneys are normal in size without hydronephrosis. Bowel: There are no transition zones indicate bowel obstruction. The appendix appears normal. There is no acute diverticulitis. Peritoneum: There is no intraperitoneal free air or abdominal ascites. There is a small fat-containing umbilical hernia which contains a knuckle of small bowel. This is nonobstructing. There is rectus diastases. Vasculature: The abdominal aorta is normal in course and caliber. Adenopathy: None. Pelvic viscera: The bladder, and pelvic viscera are unremarkable. Skeletal structures: No destructive osseous lesions are seen. IMPRESSION: 1. No acute intra-abdominal or pelvic findings 2. No evidence of bowel obstruction. No evidence of free air 3. Normal appendix. No evidence of diverticulitis. 4. Rectus diastases. Small fat-containing umbilical hernia containing a knuckle of small bowel. There is no current evidence of obstruction Electronically signed by: Elvis Zuluaga M.D. 01/10/2019 5:01 PM Blood Pressure Blood Pressure Findings: Normal blood pressure MDM Narrative The patient is a 33-year-old male who presented to the emergency department from the present for an evaluation of abdominal pain. The patient had very significant abdominal pain on physical exam. For this reason laboratory and r adiographic studies were obtained. Ultimately his CAT scan of his abdomen and pelvis did not show any acute disease but he was found to have new onset diabetes with DKA. I discussed the patient's laboratory and radiographic studies with him. Because of his findings I also discussed his case with the on-call [facility] hospitalist. He was treated with IV fluids IV pain medication and IV antiemetics. He was also given IV insulin. He was reevaluated multiple times. On subsequent reevaluation he was feeling much better. Impression & Plan Abdominal pain, DKA (diabetic ketoacidoses), Dehydration Discharge Plan Visit Data *Final* Discharge Date/Time: 01/10/19 20:09 Chief Complaint: Abdominal Pain Stated Complaint: VOMITING,ABD PAIN,R/O BOWEL OBSTRUCTION ED Provider: Catarino Young Discharge Problem: Abdominal pain, DKA (diabetic ketoacidoses), Dehydration Patient Disposition: Admitted As Inpatient Discharge Instructions Interventions: ED Discharge Assessment Last Done: 01/10/19 20:09 Discharge Problem: Abdominal pain Qualifiers: Abdominal location: unspecified location Qualified Code(s): R10.9 - Unspecified abdominal pain The scribe's documentation has been prepared under my direction and personally reviewed by me in its entirety. I confirm that the note above accurately reflects all work, treatment, procedures, and medical decision making performed by me.
[2019-01-10 18:16] LABS: Base Excess VBG -13.1 mEq/L; Oxygen Saturation VBG 64.9 %; pH VBG 7.19 (7.36-7.41)
[2019-01-10] MEDS ORDERED: MODERATE STRESS LEVEL ONE (18:40)
[2019-01-10] MEDS ORDERED: PHARMACY GLYCEMIC MGMT CONSULT STA (18:40)
[2019-01-10] MEDS ORDERED: BISACODYL 10 MG SUPP PR STA ×2 (18:46→21:35)
--- NOTE | 2019-01-10 18:48 | History & Physical Report ---
Date of Service January 10, 2019 Assessment & Plan (1) DKA (diabetic ketoacidoses): This is a 33-year-old male who has a significant PMH of PTSD, disassociated identity disorder, major depressive disorder with psychotic features who presents to [facility] secondary to abdominal pain x1.5 weeks. In ED patient was noted to have a serum glucose of 407, elevated BUN and creatinine at 23 and 1.51, corrected serum sodium 135, K5.0, CO2 14, elevated anion gap 17, VBG pH 7.19. Chest x-ray negative for acute abnormality. CT abdomen pelvis negative for acute abnormality given abdominal pain, noted Rectus diastases with small fat-containing umbilical hernia containing a knuckle small bowel no evidence of obstruction. ECG revealed normal sinus rhythm no ST or T wave changes. Urinalysis, lactate, troponin pending Admit to PCU Initiate moderate stress insulin drip Glycemic pharmacy is consulted and appreciate their management in DKA IVF NS 200 cc/h Every 4 hour VBG pH, BMP, mag Accuchecks per protocol N.p.o. except chips and sips Check orthostatic Consult life skills educator A1c and fasting lipid panel in a.m. Will reevaluate frequently and adjust fluids/electrolytes as necessary (2) Metabolic acidosis: Plan as above (3) KAROLINE (acute kidney injury): BUN/creatinine 23 and 1.51 Likely in the setting of hypovolemia given acute onset DKA Continue IV fluid resuscitation Monitor BMP every 4 hours (4) Abdominal pain: Likely secondary to DKA Obtain lactic acid If abdominal pain does not improve despite correction of DKA consult general surgery biscodyl suppository ordered secondary to patient complaints of constipation Molasses enema as needed if no relief from suppository (5) Blood in stool: given new onset DKA and history of stomach cancer will consult GI Pt complaining of constipation, may be in the setting of hemorrhoid vs fissure, monitor appreciate GI input (6) History of stomach cancer: Patient states history of stomach cancer at age 17, has had no recurrence Followed oncologist up in [place] Has not had follow-up in recent years (7) PTSD (post-traumatic stress disorder): (8) Dissociative identity disorder: (9) Major depression with psychotic features: Continue chlorpromazine, escitalopram, lithium Check lithium level Mood stable (10) DVT prophylaxis: SCDS/TEDS for now given complaint of blood in stool Disposition: D/C back to [facility] when able Follow up: Provider at [facility], likely will also need endocrine follow up Patient was seen and examined in collaboration with Dr. Castellanos, please see addendum Starting 01/11/19 pt will be under the care of Dr. Granados History of Present Illness Chief Complaint: Abdominal pain, n/v x 1.5 weeks. Primary Care Provider: [facility] This is a 33-year-old male who has a significant PMH of PTSD, disassociated identity disorder, major depressive disorder with psychotic features who presents to [facility] secondary to abdominal pain x1.5 weeks. He complains of nausea, emesis, inability to tolerate liquid or solid food, lightheadedness, dizziness, syncopal episode once a day that were unwitnessed, substernal chest pain that would come and go unrelated to rest or exertion, abdominal pain that is constant, located left upper quadrant and right lower quadrant, polyuria, polydipsia. Last BM was 4 days ago. "I wish I could just move my bowels I need something to move my bowels." When he had a BM 4 days ago he noted dark red blood on toilet paper and in stool as well as painful defecating. Nothing has made symptoms improve. "I thought they would just go away." Syncope episodes were unwitnessed and he is unsure how long he was down, states one incidence is when a CO caught him prior to falling. He could feel lightheadedness and dizziness prior to passing out. He denies any other recent illness, fever, chills, sweats, shortness of breath, dysuria, hematuria. Appetite has overall been reduced as he is unable to tolerate oral intake. He denies any recent drug use. He has positive family history of diabetes in mother, aunt, brother but unknown what type. Outside of psychiatric illnesses he denies any significant past medical illnesses except stomach cancer when he was 17 years old that was surgically resected. Allergies Allergy/AdvReac Type Severity Reaction Status Date / Time shellfish derived Allergy Intermediate throat Verified 01/10/19 17:57 closes Home Medications Home Medications Medication Instructions Recorded Confirmed Type chlorpromazine 50 mg PO HS 01/10/19 01/10/19 History escitalopram oxalate 30 mg PO DAILY 01/10/19 01/10/19 History lithium carbonate 450 mg PO HS 01/10/19 01/10/19 History ranitidine HCl 150 mg PO BID 01/10/19 01/10/19 History Past Med/Surg History Medical History Major depression with psychotic features (Chronic) Dissociative identity disorder (Chronic) PTSD (post-traumatic stress disorder) (Chronic) History of stomach cancer (Chronic) age 17 Depression (Chronic) Stomach cancer (Acute) Surgical History S/P gastric surgery (Chronic) hx of removal of stomach cancer at age 17 per pt. Family History Mother Diabetes Brother Diabetes Aunt Diabetes Social History Preferred Language: Hebrew Communication Ability: Effective Stacker Straightener Required: No Beliefs That Will Affect Care: Restoration Current Living Situation: Other Current Living Situation Comment: prisoner Other Information That Helps Us Care for You: No Feels Safe at Home: No Safety Concerns: Feels Safe At This Time Smoking Status: Never smoker Do You Dip or Chew Tobacco: No Second Hand Exposure: No Tobacco Cessation Education Requested by Patient: No Hx Alcohol Use: No Hx Substance Use: No Review of Systems Review of Systems: As noted per HPI, 10 and more systems reviewed and negative unless noted above. Physical Exam Physical Exam: Gen: WD/WN, ill-appearing, -Nigerien, male, lying in bed, answers questions appropriately Head: Normocephalic, Atraumatic Eyes: Sclera normal, no conjunctival injection, PERRLA, EOMI ENT: Gross hearing intact, normal pharynx, mucous membranes moist with thickened salivary secretions Neck: supple, no adenopathy, No JVD, no bruit, Resp: Clear to auscultation b/l, no wheeze, rales, rhonchi. Normal insp/exp effort, no accessory muscle use CV: Tachycardic rate, regular rhythm, no murmur, rub, gallop, or ectopy Abd: +BS x 4, mildly distended, tender to palpation throughout, no rebound, guarding or rigidity. Musculoskeletal: moves extremities active rom x 4, strength intact, good bonbon dipper strength Extremities: No edema bilaterally Skin: warm, moist, no rash,mild turgor, cap refill < 2sec Neuro: Alert and oriented x 3, speech normal, flat mood/affect, cran nerve 2-12 intact grossly : deferred Results & Data Vital Signs (Past 12 Hours) Vital Signs Temp Pulse Pulse Resp BP BP Pulse Ox 01/10/19 17:30 90 16 143/92 H 97 01/10/19 16:43 97 01/10/19 15:35 36.5 C 106 H 18 130/84 97 Laboratory Results Short CBC 01/10/19 Range/Units 16:30 WBC 9.06 (4.8-10.8) K/uL Hgb 17.3 (14.0-18.0) g/dL Hct 48.1 (42-52) % Plt Count 267 (130-400) K/uL BMP 01/10/19 16:30 Sodium 132 L Potassium 5.0 Chloride 104 Carbon Dioxide 14 L BUN 23 H Creatinine 1.51 H Glucose 407 H* Calcium 9.9 Liver Function 01/10/19 Range/Units 16:30 Total Bilirubin 0.6 (0.2-1) mg/dl AST 14 L (15-37) U/L ALT 25 (12-78) U/L Alkaline Phosphatase 123 H (45-117) U/L Albumin 4.5 (3.4-5.0) gm/dl Diagnostic Findings CXR: IMPRESSION: Negative chest. Abd/Pelvis CT: IMPRESSION: 1. No acute intra-abdominal or pelvic findings 2. No evidence of bowel obstruction. No evidence of free air 3. Normal appendix. No evidence of diverticulitis. 4. Rectus diastases. Small fat-containing umbilical hernia containing a knuckle of small bowel. There is no current evidence of obstruction Medications Administered Ioversol (Optiray 320 100ml) 93 ml IV ONCE PRN PRN Reason: Interaction Checking Stop: 01/14/19 16:43 Last Admin: 01/10/19 16:44 Dose: 93 ml Documented by: [id number] Morphine Sulfate (Morphine Sulfate) 4 mg IV Q15M PRN PRN Reason: Pain Stop: 01/24/19 15:40 Last Admin: 01/10/19 16:38 Dose: 4 mg Documented by: [id number] Discontinued Medications Sodium Chloride (Nss 1000ml) 1,000 mls @ 999 mls/hr IV .Q1H1M ROZINA Stop: 01/10/19 16:45 Last Infusion: 01/10/19 17:36 Dose: 0 mls/hr Documented by: [id number] Admin: 01/10/19 16:34 Dose: 999 mls/hr Documented by: [id number] Sodium Chloride (Nss 1000ml) 1,000 mls @ 999 mls/hr IV .Q1H1M ONE Stop: 01/10/19 18:05 Last Infusion: 01/10/19 18:23 Dose: 0 mls/hr Documented by: [id number] Admin: 01/10/19 17:10 Dose: 999 mls/hr Documented by: [id number] Insulin Human Regular (Novolin R U-100 Per Unit) 4 units IV NOW STA Stop: 01/10/19 17:11 Last Admin: 01/10/19 17:17 Dose: 4 units Documented by: [id number] Cosigned by: [id number] Ondansetron HCl (Zofran) 4 mg IV NOW STA Stop: 01/10/19 15:42 Last Admin: 01/10/19 16:38 Dose: 4 mg Documented by: [id number] ECG Rate (beats per minute): 90 Rhythm: normal sinus Findings: + prolonged QT (QTC 474ms) Code Status & VTE Plan Code Status Full Code VTE Prophylaxis Plan VTE Prophylaxis will be ordered: Yes Supervising Physician Co-Signing Physician Notes 33 yo M with no h/o diabetes presented [facility] the ER from shelter with 1.5 weeks of vomiting. He reports a persistent intolerance to anything he ate or drank which was followed by fainting spells and dizziness. He reports "sporadic" chest pain and shortness of breath that would come off/on spontaneously, not provoked by anything in particular. He also reports generalized abdominal pain, and states that he hasn't pooped in 4 days time. He reports dark red blood in his stool prior to onset of constipation. He reports passing gas, but doesn't think this has happened since this morning. He denies any fevers, chills, diarrhea. He denies any recent illnesses or known sick contacts. He denies smoking. He otherwise has a h/o psychiatric illness and is on medication for this. He appears very dehydrated with thickened saliva gathering at the corners of his mouth and dry mucous membranes. He is mentating normally and has a muscular build. VSS are 143/92, P90, R 16, T 36.5C, 97% on room air. He is in no respiratory distress. Lungs are clear to auscultation bilaterally, and cardiovascular exam reveals S1, S2 without evident of murmur, gallops or rubs. There is no edema present. Abdomen is soft and with generalized tenderness and voluntary guarding on exam. I have seen and examined the patient and have discussed the case with the provider above. I agree with the assessment and plan as stated with the following exceptions. Will continue insulin drip and NSS for now, continuing to trend BMP and pH q4hr. UA is pending, CXR was negative. CT a/p was performed and revealed no acute findings. There was rectus diasteses present with a small fat-containing hernia that contained a knuckle of small bowel, however, there was no evidence of obstruction. As the abdominal pain is more likely related and expected with the DKA, this obscures the exam with respect to any bowel issues. If lactate is elevated, or if the abdominal pain doesn't improve with correction of the acidosis, will ask surgery to evaluate him. Regarding his chest pain, a troponin is pending and there is no evidence of ischemia on EKG. No active chest pain, and this doesn't appear consistent with ACS. He will be monitored on PCU. Will cont to re-evaluate with correction of acidosis. DO Emanuel ADDENDUM ([id number]): Lactate is normal, acidosis is improving. Current Na 143, K 4.3, HCO3 16, Creat 1.21, gluc 238. Gap is down to 14, pH is up to 7.22. Insulin rate is roughly 2 Units/hr. I spoke with nursing and am changing the IVF to D51/2 NSS +20 MEq KCL at 150 cc/hr. Urine studies remain uncollected but nurse is aware of the order. [place] level not toxic. Troponin was negative. A1C pending. Cont to trend labs overnight. Cont insulin drip with likely transition to basal/bolus in am if feeling improved enough to eat. DO Emanuel (1) Abdominal pain Abdominal location: unspecified location Qualified Code(s): R10.9 - Unspecified abdominal pain
[2019-01-10] MEDS ORDERED: GLUCOSE 10 TABS/TUBE PO PRN (19:15)
[2019-01-10] MEDS ORDERED: NovoLIN-R BOLUS FROM BAG IV ONE (19:15)
[2019-01-10] MEDS ORDERED: CARBOHYDRATES FOR HYPOGLYCEMIA PO PRN (19:15)
[2019-01-10] MEDS ORDERED: GLUCAGON FOR INJ 1 MG VIAL IM PRN (19:15)
[2019-01-10] MEDS ORDERED: GLUCOSE 40% GEL 15 GM TUBE PO PRN (19:15)
[2019-01-10] MEDS ORDERED: DEXTROSE 50% 50 ML SYRINGE IV PRN (19:15)
[2019-01-10] MEDS: INSULIN REGULAR 250 UNITS in SODIUM CHLORIDE 0.9% 247.5 ML IV SCH (19:42)
[2019-01-10 20:52] LABS: BUN Creatinine Ratio 15.7 (10-20); Blood Urea Nitrogen 19 mg/dl (7-18); Calcium 9.1 mg/dl (8.5-10.1); Carbon Dioxide 16 mmol/L (21-32); Chloride 113 mmol/L (98-107); Creatinine Clr Calc Pharmacy 90.1 ml/min; Est GFR (African American) 91.3; Est GFR (Non-African American) 78.7; Glucose 238 mg/dl (70-99); Magnesium 2.4 mg/dl (1.8-2.4); Potassium 4.3 mmol/L (3.5-5.1); Sodium 143 mmol/L (136-145)
[2019-01-10] MEDS ORDERED: PHARMACY GLYCEMIC MGMT CONSULT PRN (20:59)
[2019-01-10] MEDS ORDERED: POLYETHYLENE (MIRALAX) 17 GM PACK PO PRN (21:04)
[2019-01-10] MEDS ORDERED: ALUMINUM/MAGNESIUM SUSP 30 ML UDC PO PRN (21:04)
[2019-01-10] MEDS ORDERED: MAGNESIUM HYDROXIDE SUSP 30 ML UDC PO PRN (21:04)
[2019-01-10] MEDS ORDERED: ACETAMINOPHEN 325 MG TAB PO PRN (21:04)
[2019-01-10] MEDS ORDERED: ONDANSETRON INJ 2 MG/ML 2 ML VIAL IV PRN (21:04)
[2019-01-10 21:06] LABS: Phosphorus 3.1 mg/dl (2.5-4.9); Troponin I < 0.015 ng/ml (0-0.045)
[2019-01-10] MEDS: INSULIN ASPART 100 UNITS/ML 3 ML PEN SC SCH (22:35)
[2019-01-10] MEDS: D5W AND 1/2NSS + 20MEQ KCL 20 MEQ/1,000 ML BAG IV SCH (22:36)
[2019-01-10] MEDS: LITHIUM CARBONATE 450 MG TABCR PO SCH (22:39)
[2019-01-10] MEDS: CHLORPROMAZINE HCL 25 MG TABLET PO SCH (22:40)
[2019-01-11 00:42] LABS: BUN Creatinine Ratio 15.6 (10-20); Calcium 8.5 mg/dl (8.5-10.1); Est GFR (African American) 103.5; Est GFR (Non-African American) 89.3; Magnesium 2.2 mg/dl (1.8-2.4); Potassium 4.1 mmol/L (3.5-5.1)
[2019-01-11 00:43] LABS: Phosphorus 2.6 mg/dl (2.5-4.9)
[2019-01-11 04:51] LABS: BUN Creatinine Ratio 12.9 (10-20); Calcium 8.6 mg/dl (8.5-10.1); Creatinine Clr Calc Pharmacy 88.6 ml/min; Est GFR (African American) 89.5; Est GFR (Non-African American) 77.2; Magnesium 2.2 mg/dl (1.8-2.4)
[2019-01-11 04:54] LABS: Phosphorus 2.2 mg/dl (2.5-4.9)
[2019-01-11] MEDS: D5W AND 1/2NSS + 20MEQ KCL 20 MEQ/1,000 ML BAG IV SCH (05:12)
[2019-01-11 05:27] LABS: Basophils # (auto) 0.03 K/uL (0-0.2); Basophils % (auto) 0.4 %; Eosinophils # (auto) 0.09 K/uL (0-0.5); Eosinophils % (auto) 1.3 %; Hematocrit (blood only) 40.3 % (42-52); Hemoglobin 14.1 g/dL (14.0-18.0); Immature Granulocytes # (auto) 0.01 K/uL (0.00-0.02); Immature Granulocytes % (auto) 0.1 %; Lymphocytes # (auto) 1.78 K/uL (1.2-3.4); Lymphocytes % (auto) 25.1 %; Mean Corpuscular Volume 84.1 fL (80-100); Mean Platelet Volume 10.4 fL (7.4-10.4); Monocytes # (auto) 0.55 K/uL (0.11-0.59); Monocytes % (auto) 7.7 %; Neutrophils # (auto) 4.64 K/uL (1.4-6.5); Neutrophils % (auto) 65.4 %; Platelet Count 239 K/uL (130-400); RDW Coefficient of Variation 12.6 % (11.5-14.5); RDW Standard Deviation 38.4 fL (36.4-46.3); Red Blood Count 4.79 M/uL (4.7-6.1)
[2019-01-11 05:35] LABS: Estimated Average Glucose 269 mg/dl
[2019-01-11] MEDS: ESCITALOPRAM OXALATE 10 MG TAB PO SCH (07:34)
[2019-01-11] MEDS: INSULIN ASPART 100 UNITS/ML 3 ML PEN SC SCH ×5 (07:36→23:39)
--- NOTE | 2019-01-11 09:01 | Gastrointestinal Consultation ---
Date of Consultation January 11, 2019 Assessment & Plan (1) Blood in stool: 33 year old male w/ reported history of stomach CA s/p resection admitted w/ DKA - GI asked to evaluate for rectal bleeding w/ rectal pain. Noted formed stools once every 3/4 days with BRB in the toilet bowl w/ associated rectal discomfort. DDX discussed: diverticular bleed, hemorrhoidal bleed, fissure, polyp, malignancy VSS, stable HGB w/ normal PLT count - Trend H&H - Monitor and document all GI output - Transfuse PRN protocol - Bowel regimen - Colace 100 mg twice daily - Miralax 1 capful 1-2 times daily - PO PPI - Obtain outside records - Will need OP EGD/Colonoscopy once acute blood glucose issues resolved and are maintained Thank you for allowing us to participate in the care of this patient. Please call with any acute changes, questions or concerns. Please see addendum below with additional recommendation from my supervising physician. (2) S/P gastric surgery: (3) DKA (diabetic ketoacidoses): (4) Abdominal pain: Supervising Physician Co-Signing Physician Notes I have seen and examined the patient and discussed the management with EVELYN Ceron. 33 yo male prisoner admitted with DKA. Prior gastric cancer ? at the age of 17 and reports of blood in stool. No active bleeding noted currently, hgb stable. Under treatment for DKA at this time. Would ideally puruse outpatient egd/colon given current DKA and ideally he would need medically optimized prior to egd/colon. History of Present Illness Reason for Consultation: rectal bleeding Requesting Physician: Roberta Attending Physician: Avinash Granados MD History of Present Illness 33 year old male with history of PTSD, disassociated identity disorder, major depressive disorder with psychotic features, reported stomach CA age 17 who presented through the ED for 1-2 weeks of abdominal pain, nausea, vomiting - GI asked to evaluate for blood stools. Endorses generalized abd pain. Explained as intermittnet, dull and cramping. Not associated w/ PO or BM. Typically constipated. Will have a BM every 3/4 days. Notes chronic rectal pain, discomfort. Will have BRB w/ rectal bleeding. This is bright red blood, in the toilet bowl w/ normal stool. Admitted w/ DKA. Stable HGB, PLT normal. Normal LFTs. CT: No acute intra-abdominal or pelvic findingsNo evidence of bowel obstruction. No evidence of free airNormal appendix. No evidence of diverticulitis. Rectus diastases. Small fat-containing umbilical hernia containing a knuckle of small bowel. There is no current evidence of obstruction Allergies Allergy/AdvReac Type Severity Reaction Status Date / Time shellfish derived Allergy Intermediate throat Verified 01/10/19 17:57 closes Home Medications Home Medications Medication Instructions Recorded Confirmed Type chlorpromazine 50 mg PO HS 01/10/19 01/10/19 History escitalopram oxalate 30 mg PO DAILY 01/10/19 01/10/19 History lithium carbonate 450 mg PO HS 01/10/19 01/10/19 History ranitidine HCl 150 mg PO BID 01/10/19 01/10/19 History Patient History Medical History Major depression with psychotic features (Chronic) Dissociative identity disorder (Chronic) PTSD (post-traumatic stress disorder) (Chronic) History of stomach cancer (Chronic) age 17 Depression (Chronic) Stomach cancer (Acute) Surgical History S/P gastric surgery (Chronic) hx of removal of stomach cancer at age 17 per pt. Family History Mother Diabetes Brother Diabetes Aunt Diabetes Social History Preferred Language: Sami Communication Ability: Effective Service Desk Technician Required: No Beliefs That Will Affect Care: Restoration Current Living Situation: Other Current Living Situation Comment: prisoner Other Information That Helps Us Care for You: No Feels Safe at Home: No Safety Concerns: Feels Safe At This Time Smoking Status: Never smoker Do You Dip or Chew Tobacco: No Second Hand Exposure: No Tobacco Cessation Education Requested by Patient: No Hx Alcohol Use: No Hx Substance Use: No Review of Systems Constitutional: no fever, no body aches, no weakness and no weight gain Respiratory: no cough, no dyspnea, no pain on inspiration and no wheezing Cardiovascular: no chest pain, no radiating jaw, neck or arm pain, no dyspnea on exertion and no palpitations Gastrointestinal: + abdominal pain and + blood in stools; no belching, no bloating, no early satiety, no heartburn, no nausea, no vomiting, no coffee ground emesis, no hematemesis, no pain with swallowing, no cramping, no excess amna flatulence, no change in stools, no constipation, no fecal incontinence, no constant urge to pass stools and no melena Physical Exam Constitutional: WD/WN, vitals as above well developed and well nourished Respiratory: normal respiratory effort, lungs clear to auscultation Cardiovascular: RRR, no murmur, no edema Gastrointestinal (Abdomen): normal bowel sounds, soft, nontender, no hepatosplenomegaly Skin: no rashes, warm and dry Results & Data Vital Signs (Past 12 Hours) Vital Signs Temp Pulse Pulse Resp BP BP Pulse Ox 01/11/19 07:26 36.5 C 73 18 130/88 95 01/11/19 03:25 36.9 C 81 18 127/83 99 01/11/19 00:34 83 01/11/19 00:13 36.6 C 85 18 134/86 99 01/10/19 21:15 36.8 C 88 18 126/95 01/10/19 21:04 Pulse Ox 01/11/19 07:26 01/11/19 03:25 01/11/19 00:34 01/11/19 00:13 01/10/19 21:15 01/10/19 21:04 99 Laboratory Results 01/11/19 01/11/19 01/11/19 Range/Units 08:22 07:25 06:11 WBC (4.8-10.8) K/uL RBC (4.7-6.1) M/uL Hgb (14.0-18.0) g/dL POC Hgb (14.0-18.0) g/dl Hct (42-52) % POC Hct (42-52) % MCV (80-100) fL MCH (25-34) pg MCHC (32-36) g/dL RDW Std Deviation (36.4-46.3) fL RDW Coeff of Kirstie (11.5-14.5) % Plt Count (130-400) K/uL MPV (7.4-10.4) fL Immature Gran % (Auto) % Neut % (Auto) % Lymph % (Auto) % [place] % (Auto) % Eos % (Auto) % Baso % (Auto) % Immature Gran # (Auto) (0.00-0.02) K/uL Neut # (Auto) (1.4-6.5) K/uL Lymph # (Auto) (1.2-3.4) K/uL [place] # (Auto) (0.11-0.59) K/uL Eos # (Auto) (0-0.5) K/uL Baso # (Auto) (0-0.2) K/uL VBG pH (7.36-7.41) VBG pCO2 (38-50) mmHg VBG pO2 mmHg VBG HCO3 mmol/L VBG O2 Saturation % VBG Base Excess mEq/L Barometric Pressure mm/Hg POC Sodium (135-144) mEq/L Sodium (136-145) mmol/L POC Potassium (3.3-5.0) mEq/L Potassium (3.5-5.1) mmol/L POC Chloride (101-112) mEq/L Chloride (98-107) mmol/L Carbon Dioxide (21-32) mmol/L POC Total CO2 (24-31) mEq/l Anion Gap (3-11) POC Anion Gap (16-25) mmol/L POC BUN (7-18) mg/dl BUN (7-18) mg/dl Creatinine (0.6-1.4) mg/dl POC Creatinine (0.6-1.3) mg/dl Est Cr Clr Drug Dosing ml/min Est GFR ( Amer) Est GFR (Non-Af Amer) BUN/Creatinine Ratio (10-20) Glucose (70-99) mg/dl POC Glucose 334 H* 229 H 235 H (70-99) POC Glucose (other) (70-99) mg/dl Estimat Average Glucose mg/dl Hemoglobin A1c (4.5-5.6) % Lactate (0.4-2.0) mmol/L Calcium (8.5-10.1) mg/dl POC Ioniz Calcium Ant (1.12-1.32) mmol/l Phosphorus (2.5-4.9) mg/dl Magnesium (1.8-2.4) mg/dl Total Bilirubin (0.2-1) mg/dl AST (15-37) U/L ALT (12-78) U/L Alkaline Phosphatase (45-117) U/L Troponin I (0-0.045) ng/ml Total Protein (6.4-8.2) gm/dl Albumin (3.4-5.0) gm/dl Globulin (2.5-4.0) gm/dl Albumin/Globulin Ratio (0.9-2) Triglycerides (0-150) mg/dl Cholesterol (0-200) mg/dl LDL Cholesterol, Calc mg/dl VLDL Cholesterol, Calc mg/dl HDL Cholesterol mg/dl Cholesterol/HDL Ratio Lipase (73-393) U/L Beta-Hydroxybutyric Acd Specimen Hemolysis Nasal Screen MRSA (PCR) (Negative) [place] (0.6-1.2) mmol/L 01/11/19 01/11/19 01/11/19 Range/Units 05:08 04:07 04:07 WBC 7.10 (4.8-10.8) K/uL RBC 4.79 (4.7-6.1) M/uL Hgb 14.1 D (14.0-18.0) g/dL POC Hgb (14.0-18.0) g/dl Hct 40.3 L (42-52) % POC Hct (42-52) % MCV 84.1 (80-100) fL MCH 29.4 (25-34) pg MCHC 35.0 (32-36) g/dL RDW Std Deviation 38.4 (36.4-46.3) fL RDW Coeff of Kirstie 12.6 (11.5-14.5) % Plt Count 239 (130-400) K/uL MPV 10.4 (7.4-10.4) fL Immature Gran % (Auto) 0.1 % Neut % (Auto) 65.4 % Lymph % (Auto) 25.1 % [place] % (Auto) 7.7 % Eos % (Auto) 1.3 % Baso % (Auto) 0.4 % Immature Gran # (Auto) 0.01 (0.00-0.02) K/uL Neut # (Auto) 4.64 (1.4-6.5) K/uL Lymph # (Auto) 1.78 (1.2-3.4) K/uL [place] # (Auto) 0.55 (0.11-0.59) K/uL Eos # (Auto) 0.09 (0-0.5) K/uL Baso # (Auto) 0.03 (0-0.2) K/uL VBG pH (7.36-7.41) VBG pCO2 (38-50) mmHg VBG pO2 mmHg VBG HCO3 mmol/L VBG O2 Saturation % VBG Base Excess mEq/L Barometric Pressure mm/Hg POC Sodium (135-144) mEq/L Sodium (136-145) mmol/L POC Potassium (3.3-5.0) mEq/L Potassium (3.5-5.1) mmol/L POC Chloride (101-112) mEq/L Chloride (98-107) mmol/L Carbon Dioxide (21-32) mmol/L POC Total CO2 (24-31) mEq/l Anion Gap (3-11) POC Anion Gap (16-25) mmol/L POC BUN (7-18) mg/dl BUN (7-18) mg/dl Creatinine (0.6-1.4) mg/dl POC Creatinine (0.6-1.3) mg/dl Est Cr Clr Drug Dosing ml/min Est GFR ( Amer) Est GFR (Non-Af Amer) BUN/Creatinine Ratio (10-20) Glucose (70-99) mg/dl POC Glucose 251 H (70-99) POC Glucose (other) (70-99) mg/dl Estimat Average Glucose 269 mg/dl Hemoglobin A1c 11.0 H (4.5-5.6) % Lactate (0.4-2.0) mmol/L Calcium (8.5-10.1) mg/dl POC Ioniz Calcium Ant (1.12-1.32) mmol/l Phosphorus (2.5-4.9) mg/dl Magnesium (1.8-2.4) mg/dl Total Bilirubin (0.2-1) mg/dl AST (15-37) U/L ALT (12-78) U/L Alkaline Phosphatase (45-117) U/L Troponin I (0-0.045) ng/ml Total Protein (6.4-8.2) gm/dl Albumin (3.4-5.0) gm/dl Globulin (2.5-4.0) gm/dl Albumin/Globulin Ratio (0.9-2) Triglycerides (0-150) mg/dl Cholesterol (0-200) mg/dl LDL Cholesterol, Calc mg/dl VLDL Cholesterol, Calc mg/dl HDL Cholesterol mg/dl Cholesterol/HDL Ratio Lipase (73-393) U/L Beta-Hydroxybutyric Acd Specimen Hemolysis Nasal Screen MRSA (PCR) (Negative) [place] (0.6-1.2) mmol/L 01/11/19 01/11/19 01/11/19 Range/Units 04:07 03:19 01:22 WBC (4.8-10.8) K/uL RBC (4.7-6.1) M/uL Hgb (14.0-18.0) g/dL POC Hgb (14.0-18.0) g/dl Hct (42-52) % POC Hct (42-52) % MCV (80-100) fL MCH (25-34) pg MCHC (32-36) g/dL RDW Std Deviation (36.4-46.3) fL RDW Coeff of Kirstie (11.5-14.5) % Plt Count (130-400) K/uL MPV (7.4-10.4) fL Immature Gran % (Auto) % Neut % (Auto) % Lymph % (Auto) % [place] % (Auto) % Eos % (Auto) % Baso % (Auto) % Immature Gran # (Auto) (0.00-0.02) K/uL Neut # (Auto) (1.4-6.5) K/uL Lymph # (Auto) (1.2-3.4) K/uL [place] # (Auto) (0.11-0.59) K/uL Eos # (Auto) (0-0.5) K/uL Baso # (Auto) (0-0.2) K/uL VBG pH (7.36-7.41) VBG pCO2 (38-50) mmHg VBG pO2 mmHg VBG HCO3 mmol/L VBG O2 Saturation % VBG Base Excess mEq/L Barometric Pressure mm/Hg POC Sodium (135-144) mEq/L Sodium 139 (136-145) mmol/L POC Potassium (3.3-5.0) mEq/L Potassium 4.0 (3.5-5.1) mmol/L POC Chloride (101-112) mEq/L Chloride 110 H (98-107) mmol/L Carbon Dioxide 22 (21-32) mmol/L POC Total CO2 (24-31) mEq/l Anion Gap 7.0 (3-11) POC Anion Gap (16-25) mmol/L POC BUN (7-18) mg/dl BUN 16 (7-18) mg/dl Creatinine 1.23 (0.6-1.4) mg/dl POC Creatinine (0.6-1.3) mg/dl Est Cr Clr Drug Dosing 88.6 ml/min Est GFR ( Amer) 89.5 Est GFR (Non-Af Amer) 77.2 BUN/Creatinine Ratio 12.9 (10-20) Glucose 220 H (70-99) mg/dl POC Glucose 209 H 205 H (70-99) POC Glucose (other) (70-99) mg/dl Estimat Average Glucose mg/dl Hemoglobin A1c (4.5-5.6) % Lactate (0.4-2.0) mmol/L Calcium 8.6 (8.5-10.1) mg/dl POC Ioniz Calcium Ant (1.12-1.32) mmol/l Phosphorus 2.2 L (2.5-4.9) mg/dl Magnesium 2.2 (1.8-2.4) mg/dl Total Bilirubin (0.2-1) mg/dl AST (15-37) U/L ALT (12-78) U/L Alkaline Phosphatase (45-117) U/L Troponin I (0-0.045) ng/ml Total Protein (6.4-8.2) gm/dl Albumin (3.4-5.0) gm/dl Globulin (2.5-4.0) gm/dl Albumin/Globulin Ratio (0.9-2) Triglycerides 125 (0-150) mg/dl Cholesterol 293 H (0-200) mg/dl LDL Cholesterol, Calc 222 mg/dl VLDL Cholesterol, Calc 25 mg/dl HDL Cholesterol 46 mg/dl Cholesterol/HDL Ratio 6 Lipase (73-393) U/L Beta-Hydroxybutyric Acd Specimen Hemolysis Nasal Screen MRSA (PCR) (Negative) [place] (0.6-1.2) mmol/L 01/11/19 01/11/19 01/11/19 Range/Units 01:15 00:10 00:10 WBC (4.8-10.8) K/uL RBC (4.7-6.1) M/uL Hgb (14.0-18.0) g/dL POC Hgb (14.0-18.0) g/dl Hct (42-52) % POC Hct (42-52) % MCV (80-100) fL MCH (25-34) pg MCHC (32-36) g/dL RDW Std Deviation (36.4-46.3) fL RDW Coeff of Kirstie (11.5-14.5) % Plt Count (130-400) K/uL MPV (7.4-10.4) fL Immature Gran % (Auto) % Neut % (Auto) % Lymph % (Auto) % [place] % (Auto) % Eos % (Auto) % Baso % (Auto) % Immature Gran # (Auto) (0.00-0.02) K/uL Neut # (Auto) (1.4-6.5) K/uL Lymph # (Auto) (1.2-3.4) K/uL [place] # (Auto) (0.11-0.59) K/uL Eos # (Auto) (0-0.5) K/uL Baso # (Auto) (0-0.2) K/uL VBG pH 7.28 L (7.36-7.41) VBG pCO2 (38-50) mmHg VBG pO2 mmHg VBG HCO3 mmol/L VBG O2 Saturation % VBG Base Excess mEq/L Barometric Pressure mm/Hg POC Sodium (135-144) mEq/L Sodium (136-145) mmol/L POC Potassium (3.3-5.0) mEq/L Potassium (3.5-5.1) mmol/L POC Chloride (101-112) mEq/L Chloride (98-107) mmol/L Carbon Dioxide (21-32) mmol/L POC Total CO2 (24-31) mEq/l Anion Gap (3-11) POC Anion Gap (16-25) mmol/L POC BUN (7-18) mg/dl BUN (7-18) mg/dl Creatinine (0.6-1.4) mg/dl POC Creatinine (0.6-1.3) mg/dl Est Cr Clr Drug Dosing ml/min Est GFR ( Amer) Est GFR (Non-Af Amer) BUN/Creatinine Ratio (10-20) Glucose (70-99) mg/dl POC Glucose 168 H (70-99) POC Glucose (other) (70-99) mg/dl Estimat Average Glucose mg/dl Hemoglobin A1c (4.5-5.6) % Lactate (0.4-2.0) mmol/L Calcium (8.5-10.1) mg/dl POC Ioniz Calcium Ant (1.12-1.32) mmol/l Phosphorus (2.5-4.9) mg/dl Magnesium (1.8-2.4) mg/dl Total Bilirubin (0.2-1) mg/dl AST (15-37) U/L ALT (12-78) U/L Alkaline Phosphatase (45-117) U/L Troponin I (0-0.045) ng/ml Total Protein (6.4-8.2) gm/dl Albumin (3.4-5.0) gm/dl Globulin (2.5-4.0) gm/dl Albumin/Globulin Ratio (0.9-2) Triglycerides (0-150) mg/dl Cholesterol (0-200) mg/dl LDL Cholesterol, Calc mg/dl VLDL Cholesterol, Calc mg/dl HDL Cholesterol mg/dl Cholesterol/HDL Ratio Lipase (73-393) U/L Beta-Hydroxybutyric Acd Specimen Hemolysis Nasal Screen MRSA (PCR) Negative (Negative) [place] (0.6-1.2) mmol/L 01/11/19 01/10/19 01/10/19 Range/Units 00:10 23:15 22:12 WBC (4.8-10.8) K/uL RBC (4.7-6.1) M/uL Hgb (14.0-18.0) g/dL POC Hgb (14.0-18.0) g/dl Hct (42-52) % POC Hct (42-52) % MCV (80-100) fL MCH (25-34) pg MCHC (32-36) g/dL RDW Std Deviation (36.4-46.3) fL RDW Coeff of Kirstie (11.5-14.5) % Plt Count (130-400) K/uL MPV (7.4-10.4) fL Immature Gran % (Auto) % Neut % (Auto) % Lymph % (Auto) % [place] % (Auto) % Eos % (Auto) % Baso % (Auto) % Immature Gran # (Auto) (0.00-0.02) K/uL Neut # (Auto) (1.4-6.5) K/uL Lymph # (Auto) (1.2-3.4) K/uL [place] # (Auto) (0.11-0.59) K/uL Eos # (Auto) (0-0.5) K/uL Baso # (Auto) (0-0.2) K/uL VBG pH (7.36-7.41) VBG pCO2 (38-50) mmHg VBG pO2 mmHg VBG HCO3 mmol/L VBG O2 Saturation % VBG Base Excess mEq/L Barometric Pressure mm/Hg POC Sodium (135-144) mEq/L Sodium 141 (136-145) mmol/L POC Potassium (3.3-5.0) mEq/L Potassium 4.1 (3.5-5.1) mmol/L POC Chloride (101-112) mEq/L Chloride 113 H (98-107) mmol/L Carbon Dioxide 20 L (21-32) mmol/L POC Total CO2 (24-31) mEq/l Anion Gap 8.0 (3-11) POC Anion Gap (16-25) mmol/L POC BUN (7-18) mg/dl BUN 17 (7-18) mg/dl Creatinine 1.09 (0.6-1.4) mg/dl POC Creatinine (0.6-1.3) mg/dl Est Cr Clr Drug Dosing 100.0 ml/min Est GFR ( Amer) 103.5 Est GFR (Non-Af Amer) 89.3 BUN/Creatinine Ratio 15.6 (10-20) Glucose 179 H (70-99) mg/dl POC Glucose 166 H 166 H (70-99) POC Glucose (other) (70-99) mg/dl Estimat Average Glucose mg/dl Hemoglobin A1c (4.5-5.6) % Lactate (0.4-2.0) mmol/L Calcium 8.5 (8.5-10.1) mg/dl POC Ioniz Calcium Ant (1.12-1.32) mmol/l Phosphorus 2.6 (2.5-4.9) mg/dl Magnesium 2.2 (1.8-2.4) mg/dl Total Bilirubin (0.2-1) mg/dl AST (15-37) U/L ALT (12-78) U/L Alkaline Phosphatase (45-117) U/L Troponin I (0-0.045) ng/ml Total Protein (6.4-8.2) gm/dl Albumin (3.4-5.0) gm/dl Globulin (2.5-4.0) gm/dl Albumin/Globulin Ratio (0.9-2) Triglycerides (0-150) mg/dl Cholesterol (0-200) mg/dl LDL Cholesterol, Calc mg/dl VLDL Cholesterol, Calc mg/dl HDL Cholesterol mg/dl Cholesterol/HDL Ratio Lipase (73-393) U/L Beta-Hydroxybutyric Acd Specimen Hemolysis Nasal Screen MRSA (PCR) (Negative) [place] (0.6-1.2) mmol/L 01/10/19 01/10/19 01/10/19 Range/Units 20:58 20:15 20:15 WBC (4.8-10.8) K/uL RBC (4.7-6.1) M/uL Hgb (14.0-18.0) g/dL POC Hgb (14.0-18.0) g/dl Hct (42-52) % POC Hct (42-52) % MCV (80-100) fL MCH (25-34) pg MCHC (32-36) g/dL RDW Std Deviation (36.4-46.3) fL RDW Coeff of Kirstie (11.5-14.5) % Plt Count (130-400) K/uL MPV (7.4-10.4) fL Immature Gran % (Auto) % Neut % (Auto) % Lymph % (Auto) % [place] % (Auto) % Eos % (Auto) % Baso % (Auto) % Immature Gran # (Auto) (0.00-0.02) K/uL Neut # (Auto) (1.4-6.5) K/uL Lymph # (Auto) (1.2-3.4) K/uL [place] # (Auto) (0.11-0.59) K/uL Eos # (Auto) (0-0.5) K/uL Baso # (Auto) (0-0.2) K/uL VBG pH (7.36-7.41) VBG pCO2 (38-50) mmHg VBG pO2 mmHg VBG HCO3 mmol/L VBG O2 Saturation % VBG Base Excess mEq/L Barometric Pressure mm/Hg POC Sodium (135-144) mEq/L Sodium (136-145) mmol/L POC Potassium (3.3-5.0) mEq/L Potassium (3.5-5.1) mmol/L POC Chloride (101-112) mEq/L Chloride (98-107) mmol/L Carbon Dioxide (21-32) mmol/L POC Total CO2 (24-31) mEq/l Anion Gap (3-11) POC Anion Gap (16-25) mmol/L POC BUN (7-18) mg/dl BUN (7-18) mg/dl Creatinine (0.6-1.4) mg/dl POC Creatinine (0.6-1.3) mg/dl Est Cr Clr Drug Dosing ml/min Est GFR ( Amer) Est GFR (Non-Af Amer) BUN/Creatinine Ratio (10-20) Glucose (70-99) mg/dl POC Glucose 207 H (70-99) POC Glucose (other) (70-99) mg/dl Estimat Average Glucose mg/dl Hemoglobin A1c (4.5-5.6) % Lactate (0.4-2.0) mmol/L Calcium (8.5-10.1) mg/dl POC Ioniz Calcium Ant (1.12-1.32) mmol/l Phosphorus (2.5-4.9) mg/dl Magnesium (1.8-2.4) mg/dl Total Bilirubin (0.2-1) mg/dl AST (15-37) U/L ALT (12-78) U/L Alkaline Phosphatase (45-117) U/L Troponin I (0-0.045) ng/ml Total Protein (6.4-8.2) gm/dl Albumin (3.4-5.0) gm/dl Globulin (2.5-4.0) gm/dl Albumin/Globulin Ratio (0.9-2) Triglycerides (0-150) mg/dl Cholesterol (0-200) mg/dl LDL Cholesterol, Calc mg/dl VLDL Cholesterol, Calc mg/dl HDL Cholesterol mg/dl Cholesterol/HDL Ratio Lipase (73-393) U/L Beta-Hydroxybutyric Acd 66.69 H Specimen Hemolysis Nasal Screen MRSA (PCR) (Negative) [place] 0.2 L (0.6-1.2) mmol/L 01/10/19 01/10/19 01/10/19 Range/Units 20:15 20:15 19:19 WBC (4.8-10.8) K/uL RBC (4.7-6.1) M/uL Hgb (14.0-18.0) g/dL POC Hgb (14.0-18.0) g/dl Hct (42-52) % POC Hct (42-52) % MCV (80-100) fL MCH (25-34) pg MCHC (32-36) g/dL RDW Std Deviation (36.4-46.3) fL RDW Coeff of Kirstie (11.5-14.5) % Plt Count (130-400) K/uL MPV (7.4-10.4) fL Immature Gran % (Auto) % Neut % (Auto) % Lymph % (Auto) % [place] % (Auto) % Eos % (Auto) % Baso % (Auto) % Immature Gran # (Auto) (0.00-0.02) K/uL Neut # (Auto) (1.4-6.5) K/uL Lymph # (Auto) (1.2-3.4) K/uL [place] # (Auto) (0.11-0.59) K/uL Eos # (Auto) (0-0.5) K/uL Baso # (Auto) (0-0.2) K/uL VBG pH 7.22 L (7.36-7.41) VBG pCO2 (38-50) mmHg VBG pO2 mmHg VBG HCO3 mmol/L VBG O2 Saturation % VBG Base Excess mEq/L Barometric Pressure mm/Hg POC Sodium (135-144) mEq/L Sodium 143 D (136-145) mmol/L POC Potassium (3.3-5.0) mEq/L Potassium 4.3 (3.5-5.1) mmol/L POC Chloride (101-112) mEq/L Chloride 113 H (98-107) mmol/L Carbon Dioxide 16 L (21-32) mmol/L POC Total CO2 (24-31) mEq/l Anion Gap 14.0 H (3-11) POC Anion Gap (16-25) mmol/L POC BUN (7-18) mg/dl BUN 19 H (7-18) mg/dl Creatinine 1.21 D (0.6-1.4) mg/dl POC Creatinine (0.6-1.3) mg/dl Est Cr Clr Drug Dosing 90.1 ml/min Est GFR ( Amer) 91.3 Est GFR (Non-Af Amer) 78.7 BUN/Creatinine Ratio 15.7 (10-20) Glucose 238 H (70-99) mg/dl POC Glucose (70-99) POC Glucose (other) (70-99) mg/dl Estimat Average Glucose mg/dl Hemoglobin A1c (4.5-5.6) % Lactate 1.9 (0.4-2.0) mmol/L Calcium 9.1 (8.5-10.1) mg/dl POC Ioniz Calcium Ant (1.12-1.32) mmol/l Phosphorus 3.1 (2.5-4.9) mg/dl Magnesium 2.4 (1.8-2.4) mg/dl Total Bilirubin (0.2-1) mg/dl AST (15-37) U/L ALT (12-78) U/L Alkaline Phosphatase (45-117) U/L Troponin I < 0.015 (0-0.045) ng/ml Total Protein (6.4-8.2) gm/dl Albumin (3.4-5.0) gm/dl Globulin (2.5-4.0) gm/dl Albumin/Globulin Ratio (0.9-2) Triglycerides (0-150) mg/dl Cholesterol (0-200) mg/dl LDL Cholesterol, Calc mg/dl VLDL Cholesterol, Calc mg/dl HDL Cholesterol mg/dl Cholesterol/HDL Ratio Lipase (73-393) U/L Beta-Hydroxybutyric Acd Specimen Hemolysis Nasal Screen MRSA (PCR) (Negative) [place] (0.6-1.2) mmol/L 01/10/19 01/10/19 01/10/19 Range/Units 18:59 17:59 16:30 WBC (4.8-10.8) K/uL RBC (4.7-6.1) M/uL Hgb (14.0-18.0) g/dL POC Hgb (14.0-18.0) g/dl Hct (42-52) % POC Hct (42-52) % MCV (80-100) fL MCH (25-34) pg MCHC (32-36) g/dL RDW Std Deviation (36.4-46.3) fL RDW Coeff of Kirstie (11.5-14.5) % Plt Count (130-400) K/uL MPV (7.4-10.4) fL Immature Gran % (Auto) % Neut % (Auto) % Lymph % (Auto) % [place] % (Auto) % Eos % (Auto) % Baso % (Auto) % Immature Gran # (Auto) (0.00-0.02) K/uL Neut # (Auto) (1.4-6.5) K/uL Lymph # (Auto) (1.2-3.4) K/uL [place] # (Auto) (0.11-0.59) K/uL Eos # (Auto) (0-0.5) K/uL Baso # (Auto) (0-0.2) K/uL VBG pH 7.19 L (7.36-7.41) VBG pCO2 39 (38-50) mmHg VBG pO2 37 mmHg VBG HCO3 14 mmol/L VBG O2 Saturation 64.9 % VBG Base Excess -13.1 mEq/L Barometric Pressure 728.7 mm/Hg POC Sodium (135-144) mEq/L Sodium 132 L (136-145) mmol/L POC Potassium (3.3-5.0) mEq/L Potassium 5.0 (3.5-5.1) mmol/L POC Chloride (101-112) mEq/L Chloride 104 (98-107) mmol/L Carbon Dioxide 14 L (21-32) mmol/L POC Total CO2 (24-31) mEq/l Anion Gap 17.0 H (3-11) POC Anion Gap (16-25) mmol/L POC BUN (7-18) mg/dl BUN 23 H (7-18) mg/dl Creatinine 1.51 H (0.6-1.4) mg/dl POC Creatinine (0.6-1.3) mg/dl Est Cr Clr Drug Dosing 72.2 ml/min Est GFR ( Amer) 69.8 Est GFR (Non-Af Amer) 60.2 BUN/Creatinine Ratio 15.4 (10-20) Glucose 407 H* (70-99) mg/dl POC Glucose 265 H (70-99) POC Glucose (other) (70-99) mg/dl Estimat Average Glucose mg/dl Hemoglobin A1c (4.5-5.6) % Lactate (0.4-2.0) mmol/L Calcium 9.9 (8.5-10.1) mg/dl POC Ioniz Calcium Ant (1.12-1.32) mmol/l Phosphorus (2.5-4.9) mg/dl Magnesium (1.8-2.4) mg/dl Total Bilirubin 0.6 (0.2-1) mg/dl AST 14 L (15-37) U/L ALT 25 (12-78) U/L Alkaline Phosphatase 123 H (45-117) U/L Troponin I (0-0.045) ng/ml Total Protein 9.6 H (6.4-8.2) gm/dl Albumin 4.5 (3.4-5.0) gm/dl Globulin 5.1 H (2.5-4.0) gm/dl Albumin/Globulin Ratio 0.9 (0.9-2) Triglycerides (0-150) mg/dl Cholesterol (0-200) mg/dl LDL Cholesterol, Calc mg/dl VLDL Cholesterol, Calc mg/dl HDL Cholesterol mg/dl Cholesterol/HDL Ratio Lipase 71 L (73-393) U/L Beta-Hydroxybutyric Acd TNP Specimen Hemolysis Nasal Screen MRSA (PCR) (Negative) [place] (0.6-1.2) mmol/L 01/10/19 01/10/19 Range/Units 16:30 16:15 WBC 9.06 (4.8-10.8) K/uL RBC 5.72 (4.7-6.1) M/uL Hgb 17.3 (14.0-18.0) g/dL POC Hgb 18.0 (14.0-18.0) g/dl Hct 48.1 (42-52) % POC Hct 53 H (42-52) % MCV 84.1 (80-100) fL MCH 30.2 (25-34) pg MCHC 36.0 (32-36) g/dL RDW Std Deviation 37.5 (36.4-46.3) fL RDW Coeff of Kirstie 12.4 (11.5-14.5) % Plt Count 267 (130-400) K/uL MPV 11.1 H (7.4-10.4) fL Immature Gran % (Auto) 0.1 % Neut % (Auto) 76.1 % Lymph % (Auto) 17.3 % [place] % (Auto) 6.0 % Eos % (Auto) 0.2 % Baso % (Auto) 0.3 % Immature Gran # (Auto) 0.01 (0.00-0.02) K/uL Neut # (Auto) 6.89 H (1.4-6.5) K/uL Lymph # (Auto) 1.57 (1.2-3.4) K/uL [place] # (Auto) 0.54 (0.11-0.59) K/uL Eos # (Auto) 0.02 (0-0.5) K/uL Baso # (Auto) 0.03 (0-0.2) K/uL VBG pH (7.36-7.41) VBG pCO2 (38-50) mmHg VBG pO2 mmHg VBG HCO3 mmol/L VBG O2 Saturation % VBG Base Excess mEq/L Barometric Pressure mm/Hg POC Sodium 137 (135-144) mEq/L Sodium (136-145) mmol/L POC Potassium 5.4 H (3.3-5.0) mEq/L Potassium (3.5-5.1) mmol/L POC Chloride 108 (101-112) mEq/L Chloride (98-107) mmol/L Carbon Dioxide (21-32) mmol/L POC Total CO2 13 L (24-31) mEq/l Anion Gap (3-11) POC Anion Gap 23.0 (16-25) mmol/L POC BUN 31 H (7-18) mg/dl BUN (7-18) mg/dl Creatinine (0.6-1.4) mg/dl POC Creatinine 1.0 (0.6-1.3) mg/dl Est Cr Clr Drug Dosing ml/min Est GFR ( Amer) Est GFR (Non-Af Amer) BUN/Creatinine Ratio (10-20) Glucose (70-99) mg/dl POC Glucose (70-99) POC Glucose (other) 451 H* (70-99) mg/dl Estimat Average Glucose mg/dl Hemoglobin A1c (4.5-5.6) % Lactate (0.4-2.0) mmol/L Calcium (8.5-10.1) mg/dl POC Ioniz Calcium Ant 1.19 (1.12-1.32) mmol/l Phosphorus (2.5-4.9) mg/dl Magnesium (1.8-2.4) mg/dl Total Bilirubin (0.2-1) mg/dl AST (15-37) U/L ALT (12-78) U/L Alkaline Phosphatase (45-117) U/L Troponin I (0-0.045) ng/ml Total Protein (6.4-8.2) gm/dl Albumin (3.4-5.0) gm/dl Globulin (2.5-4.0) gm/dl Albumin/Globulin Ratio (0.9-2) Triglycerides (0-150) mg/dl Cholesterol (0-200) mg/dl LDL Cholesterol, Calc mg/dl VLDL Cholesterol, Calc mg/dl HDL Cholesterol mg/dl Cholesterol/HDL Ratio Lipase (73-393) U/L Beta-Hydroxybutyric Acd Specimen Hemolysis Nasal Screen MRSA (PCR) (Negative) [place] (0.6-1.2) mmol/L (1) Abdominal pain Abdominal location: unspecified location Qualified Code(s): R10.9 - Unspecified abdominal pain
[2019-01-11 09:13] LABS: Appearance Urine Clear (Clear); Bilirubin Urine Negative (Negative); Blood Urine Negative (Negative); Color Urine Yellow; Glucose Urine UA 3+ (Negative); Leukocyte Esterase Urine Negative (Negative); Nitrite Urine Negative (Negative); Protein Urine Negative (Negative); Specific Gravity Urine 1.042 (1.000-1.030); Urobilinogen Urine Negative (Negative)
[2019-01-11 09:38] LABS: Ketones Urine 3+ (Negative)
[2019-01-11 09:39] LABS: Amphetamines+Metham, Urine Neg (Neg); Barbiturates, Urine Neg (Neg); Benzodiazepine, Urine Neg (Neg); Cocaine, Urine Neg (Neg); MDMA (Ecstacy), Urine Neg (Neg); Methadone, Urine Neg (Neg); Opiate, Urine Pos (Neg); Phencyclidine, Urine Neg (Neg)
[2019-01-11] MEDS: SODIUM CHLORIDE 0.45 % 1,000 ML IV SCH ×3 (09:57→23:23)
[2019-01-11] MEDS: DOCUSATE SODIUM 100 MG CAP PO SCH ×2 (10:50→21:23)
[2019-01-11] MEDS ORDERED: INSULIN GLARGINE SOLOSTAR 100 UNITS/ML 3 ML PEN SC ONE (11:30)
[2019-01-11 16:59] LABS: Hematocrit (blood only) 37.3 % (42-52); Hemoglobin 13.3 g/dL (14.0-18.0)
[2019-01-11] MEDS ORDERED: DC IV INSULIN INFUSION 1 EA DEVI ONE (17:30)
[2019-01-11] MEDS: INSULIN REGULAR 250 UNITS in SODIUM CHLORIDE 0.9% 247.5 ML IV SCH (17:43)
--- NOTE | 2019-01-11 18:02 | Hospitalist Progress Note ---
Date of Service January 11, 2019 Assessment & Plan (1) DKA (diabetic ketoacidoses): Patient is a 33 yr male with H/O PTSD, disassociated identity disorder, major depressive disorder with psychotic features who presents to [facility] secondary to abdominal pain x1.5 weeks. DKA: CXR:negative for acute abnormality. CT abd: negative for acute abnormality given abdominal pain, noted Rectus diastases with small fat-containing umbilical hernia containing a knuckle small bowel no evidence of obstruction. UA not suggestive of UTI Normal Lactate levels Anion gap is closed Acidosis resolved A1C:11.0 Insulin drip >>Transitioned to SQ Appreciate Glycemic pharmacy help Tolerating diet Continue IV fluids Monitor BGs fruit farmworker consulted Hyperlipidemia: Will start on statin as able (2) Metabolic acidosis: Management as above (3) KAROLINE (acute kidney injury): Resolved with IV fluids Cr:1.5>>1.2 Monitor renal function (4) Abdominal pain: Likely secondary to DKA Improving Continue bowel regimen, ranitidine (5) Blood in stool: H/O Stomach CA S/P resection DD:diverticular bleed, hemorrhoidal bleed, fissure, polyp, malignancy Monitor H&H Appreciate GI Input Continue bowel regimen Planned for outpatient EGD/Colonoscopy unless bleeding worsens Appreciate GI input Continue PPI (6) History of stomach cancer: Patient states H/O stomach cancer at age 17, has had no recurrence Followed oncologist up in [facility] (7) PTSD (post-traumatic stress disorder): (8) Dissociative identity disorder: (9) Major depression with psychotic features: Continue chlorpromazine, escitalopram, lithium lithium level:0.2 stable (10) DVT prophylaxis: SCDS/TEDS Re: GI Bleed Disposition: D/C back to [facility] when able Subjective Patient is seen and examined at bedside Complains of bloody BM overnight Also had a blood BM later today Abd pain improved Denies chest pain, SOB, dizziness, nausea Tolerating diet Offers no other complaints Review of Systems Review of Systems: All systems reviewed & are unremarkable except as noted in HPI & below Physical Exam Physical Exam: Physical Exam: Vitals signs as noted above General Appearance:Moderately built and nourished, no apparent distress Head: normocephalic, Atraumatic Eyes: normal inspection, EOMI Neck: supple, Trachea midline Respiratory/Chest: Normal breath sounds, CTA Cardiovascular: S1, S2, No murmur Abdomen/GI:Soft, Mild generalized tender, Bowel sounds present Extremities/Musculoskelatal:normal inspection, no edema Neurologic/Psych:AAOX3, grossly no focal neurological deficits Skin: normal color, warm Results & Data Vital Signs (Past 12 Hours) Vital Signs Temp Pulse Pulse Resp BP Pulse Ox 01/11/19 17:21 77 01/11/19 15:13 36.4 C L 69 18 135/87 100 01/11/19 10:40 37.0 C 74 17 145/93 H 98 01/11/19 07:26 36.5 C 73 18 130/88 95 Laboratory Results Short CBC 01/11/19 01/11/19 Range/Units 04:07 16:53 WBC 7.10 (4.8-10.8) K/uL Hgb 14.1 D 13.3 L (14.0-18.0) g/dL Hct 40.3 L 37.3 L (42-52) % Plt Count 239 (130-400) K/uL BMP 01/10/19 01/11/19 01/11/19 20:15 00:10 04:07 Sodium 143 D 141 139 Potassium 4.3 4.1 4.0 Chloride 113 H 113 H 110 H Carbon Dioxide 16 L 20 L 22 BUN 19 H 17 16 Creatinine 1.21 D 1.09 1.23 Glucose 238 H 179 H 220 H Calcium 9.1 8.5 8.6 Cardiac Enzymes 01/10/19 Range/Units 20:15 Troponin I < 0.015 (0-0.045) ng/ml Urine 01/11/19 Range/Units 09:00 Urine Color Yellow Urine Appearance Clear (Clear) Urine pH 5.0 (4.5-7.5) Ur Specific Raymond 1.042 H (1.000-1.030) Urine Protein Negative (Negative) Urine Glucose (UA) 3+ H (Negative) Diagnostic Findings CT ABD: 1. No acute intra-abdominal or pelvic findings 2. No evidence of bowel obstruction. No evidence of free air 3. Normal appendix. No evidence of diverticulitis. 4. Rectus diastases. Small fat-containing umbilical hernia containing a knuckle of small bowel. There is no current evidence of obstruction (1) Abdominal pain Abdominal location: unspecified location Qualified Code(s): R10.9 - Unspecified abdominal pain
[2019-01-11] MEDS: LITHIUM CARBONATE 450 MG TABCR PO SCH (21:22)
[2019-01-11] MEDS: PANTOprazole 40 MG TAB PO SCH (21:22)
[2019-01-11] MEDS: CHLORPROMAZINE HCL 25 MG TABLET PO SCH (21:23)
[2019-01-11] MEDS ORDERED: INSULIN GLARGINE SOLOSTAR 100 UNITS/ML 3 ML PEN SC SCH (22:30)
[2019-01-12 00:27] LABS: Hemoglobin 12.2 g/dL (14.0-18.0)
[2019-01-12] MEDS: INSULIN ASPART 100 UNITS/ML 3 ML PEN SC SCH ×5 (03:55→21:24)
[2019-01-12] MEDS: SODIUM CHLORIDE 0.45 % 1,000 ML IV SCH (05:47)
[2019-01-12] MEDS: PANTOprazole 40 MG TAB PO SCH ×2 (07:38→21:23)
[2019-01-12] MEDS: DOCUSATE SODIUM 100 MG CAP PO SCH ×2 (07:39→21:23)
[2019-01-12] MEDS: ESCITALOPRAM OXALATE 10 MG TAB PO SCH (07:39)
[2019-01-12 08:51] LABS: Hematocrit (blood only) 37.6 % (42-52); Hemoglobin 13.4 g/dL (14.0-18.0); Mean Corpuscular Hgb Conc 35.6 g/dL (32-36); Mean Platelet Volume 10.3 fL (7.4-10.4); Platelet Count 178 K/uL (130-400); RDW Coefficient of Variation 12.2 % (11.5-14.5); RDW Standard Deviation 37.1 fL (36.4-46.3); Red Blood Count 4.53 M/uL (4.7-6.1); White Blood Count 3.66 K/uL (4.8-10.8)
[2019-01-12] MEDS ORDERED: INSULIN GLARGINE SOLOSTAR 100 UNITS/ML 3 ML PEN SC ONE ×2 (09:00)
[2019-01-12] MEDS ORDERED: INSULIN GLARGINE SOLOSTAR 100 UNITS/ML 3 ML PEN SC SCH (09:00)
[2019-01-12 09:18] LABS: BUN Creatinine Ratio 12.8 (10-20); Calcium 8.7 mg/dl (8.5-10.1); Creatinine Clr Calc Pharmacy 125.3 ml/min; Est GFR (African American) 132.4; Est GFR (Non-African American) 114.2
[2019-01-12] MEDS ORDERED: POTASSIUM CHLORIDE 10 MEQ TABCR PO ONE (10:00)
[2019-01-12] MEDS: POTASSIUM CHLORIDE / WTR 10 MEQ/100 ML PLCT IV SCH ×2 (10:22→11:23)
--- NOTE | 2019-01-12 13:42 | Pharmacy Report ---
Pharmacy Glycemic Short Note 2 - Date of Service January 12, 2019 - Glycemic Short BSG Results (Last 24 hours): 01/11/19 01/11/19 01/11/19 13:21 14:18 15:14 Glucose POC Glucose 244 H 223 H 187 H 01/11/19 01/11/19 01/11/19 16:16 20:37 23:28 Glucose POC Glucose 172 H 250 H 310 H* 01/12/19 01/12/19 01/12/19 03:52 07:25 08:37 Glucose 79 POC Glucose 144 H 90 01/12/19 11:07 Glucose POC Glucose 229 H OUTPATIENT ANTIDIABETIC REGIMEN: * N/A ASSESSMENT: * Patient was successfully transitioned off drip last evening. BSGs were elevated at midnight, but it is noted that patient was covered for at least 2 snacks. * Fasting BSG adequate this morning. Will initiate a weight based stress of 2 lantus regimen, with a scale this evening. * Post prandial BSGs are improving, will continue current novolog coverage and monitor. This may need to be tightened eventually. PLAN FOR INPATIENT GLYCEMIC CONTROL: * Hold outpatient oral diabetes medications * Basal insulin * Lantus 14 units SQ this morning * Lantus per scale this evening (8, 14, or 18 units based on BSG) * Bolus insulin * NovoLog per scale ACHS or Q6hrs while NPO * Goal Range: Low 120 mg/dL - High 150 mg/dL * Correction Factor: 20 mg/dL/unit * Nutritional / Prandial insulin per carb ratio of 1 unit per 7 grams CHO consumed PLAN FOR DISCHARGE: * Pending
[2019-01-12 16:50] LABS: Hematocrit (blood only) 35.8 % (42-52); Hemoglobin 12.9 g/dL (14.0-18.0)
--- NOTE | 2019-01-12 17:19 | Hospitalist Progress Note ---
Date of Service January 12, 2019 Assessment & Plan (1) DKA (diabetic ketoacidoses): Patient is a 33 yr male with H/O PTSD, disassociated identity disorder, major depressive disorder with psychotic features who presents to [facility] secondary to abdominal pain x1.5 weeks. DKA: CXR:negative for acute abnormality. CT abd: negative for acute abnormality given abdominal pain, noted Rectus diastases with small fat-containing umbilical hernia containing a knuckle small bowel no evidence of obstruction. UA not suggestive of UTI Normal Lactate levels Anion gap is closed Acidosis resolved A1C:11.0 Insulin drip >>Transitioned to SQ Appreciate Glycemic pharmacy help Tolerating diet Received IV fluids Monitor BGs coding educator consulted Continue supportive care Hyperlipidemia: Plan to start on statin (2) Metabolic acidosis: Management as above (3) KAROLINE (acute kidney injury): Resolved with IV fluids Cr:1.5>>1.2>>0.87 Monitor renal function (4) Abdominal pain: Likely secondary to DKA Improved Continue bowel regimen, ranitidine (5) Blood in stool: H/O Stomach CA S/P resection DD:diverticular bleed, hemorrhoidal bleed, fissure, polyp, malignancy Monitor H&H Appreciate GI Input Continue bowel regimen Planned for outpatient EGD/Colonoscopy unless bleeding worsens Appreciate GI input Continue PPI (6) History of stomach cancer: Patient states H/O stomach cancer at age 17, has had no recurrence Followed oncologist up in [facility] (7) PTSD (post-traumatic stress disorder): (8) Dissociative identity disorder: (9) Major depression with psychotic features: Continue chlorpromazine, escitalopram, lithium lithium level:0.2 stable (10) DVT prophylaxis: SCDS/TEDS Re: GI Bleed Disposition: D/C back to [facility]-- Likely tomorrow if stable Subjective Patient is seen and examined at bedside Doing better today Abd pain resolving Reports 1 blood BM overnight Hb stable Discussed with GI-- Plan for Scope as outaptient Denies chest pain, SOB, dizziness, nausea Tolerating diet Guards at bedside Review of Systems Review of Systems: All systems reviewed & are unremarkable except as noted in HPI & below Physical Exam Physical Exam: Physical Exam: Vitals signs as noted above General Appearance:Moderately built and nourished, no apparent distress Head: normocephalic, Atraumatic Eyes: normal inspection, EOMI Neck: supple, Trachea midline Respiratory/Chest: Normal breath sounds, CTA Cardiovascular: S1, S2, No murmur Abdomen/GI:Soft, non tender, Bowel sounds present Extremities/Musculoskelatal:normal inspection, no edema Neurologic/Psych:AAOX3, grossly no focal neurological deficits Skin: normal color, warm Results & Data Vital Signs (Past 12 Hours) Vital Signs Temp Pulse Pulse Resp BP Pulse Ox 01/12/19 15:58 84 01/12/19 15:27 36.8 C 88 21 134/77 98 01/12/19 11:09 36.8 C 85 16 131/72 100 01/12/19 08:00 77 01/12/19 07:01 36.5 C 86 16 130/79 100 Laboratory Results Short CBC 01/12/19 01/12/19 01/12/19 Range/Units 00:12 08:37 16:33 WBC 3.66 L (4.8-10.8) K/uL Hgb 12.2 L 13.4 L 12.9 L (14.0-18.0) g/dL Hct 34.0 L 37.6 L 35.8 L (42-52) % Plt Count 178 (130-400) K/uL BMP 01/12/19 08:37 Sodium 139 Potassium 3.0 L D Chloride 108 H Carbon Dioxide 24 BUN 11 Creatinine 0.87 D Glucose 79 Calcium 8.7 (1) Abdominal pain Abdominal location: unspecified location Qualified Code(s): R10.9 - Unspecified abdominal pain
[2019-01-12] MEDS: CHLORPROMAZINE HCL 25 MG TABLET PO SCH (21:23)
[2019-01-12] MEDS: LITHIUM CARBONATE 450 MG TABCR PO SCH (21:23)
[2019-01-12] MEDS: INSULIN GLARGINE SOLOSTAR 100 UNITS/ML 3 ML PEN SC SCH (21:24)
[2019-01-13 06:02] LABS: Hematocrit (blood only) 34.8 % (42-52); Hemoglobin 12.5 g/dL (14.0-18.0)
[2019-01-13 06:33] LABS: BUN Creatinine Ratio 12.2 (10-20); Calcium 8.5 mg/dl (8.5-10.1); Creatinine Clr Calc Pharmacy 278.5 ml/min; Est GFR (Non-African American) 114.7; Magnesium 2.2 mg/dl (1.8-2.4); Potassium 3.5 mmol/L (3.5-5.1)
[2019-01-13] MEDS: SODIUM CHLORIDE 0.45 % 1,000 ML IV SCH (07:24)
[2019-01-13] MEDS: ESCITALOPRAM OXALATE 10 MG TAB PO SCH (08:35)
[2019-01-13] MEDS: PANTOprazole 40 MG TAB PO SCH (08:36)
[2019-01-13] MEDS: DOCUSATE SODIUM 100 MG CAP PO SCH (08:36)
[2019-01-13] MEDS: INSULIN GLARGINE SOLOSTAR 100 UNITS/ML 3 ML PEN SC SCH (08:36)
[2019-01-13] MEDS: INSULIN ASPART 100 UNITS/ML 3 ML PEN SC SCH ×2 (08:37→12:13)
--- NOTE | 2019-01-13 09:41 | Pharmacy Report ---
Pharmacy Glycemic Short Note 2 - Date of Service January 13, 2019 - Glycemic Short BSG Results (Last 24 hours): 01/12/19 01/12/19 01/12/19 11:07 16:31 20:24 Glucose POC Glucose 229 H 195 H 176 H 01/13/19 01/13/19 05:33 07:04 Glucose 152 H POC Glucose 190 H OUTPATIENT ANTIDIABETIC REGIMEN: * N/A ASSESSMENT: 01/13: * Fasting BSG somewhat elevated, but acceptable given likely insulin resistance. Will continue to monitor and adjust to conservatively decrease fasting BSG * Post prandial BSGs have improved. Will continue current novolog scale and continue to monitor for the need to tighten carb coverage. 01/12 * Patient was successfully transitioned off drip last evening. BSGs were elevated at midnight, but it is noted that patient was covered for at least 2 snacks. * Fasting BSG adequate this morning. Will initiate a weight based stress of 2 lantus regimen, with a scale this evening. * Post prandial BSGs are improving, will continue current novolog coverage and monitor. This may need to be tightened eventually. PLAN FOR INPATIENT GLYCEMIC CONTROL: * Hold outpatient oral diabetes medications * Basal insulin * Lantus 14 units SQ this morning * Lantus per scale this evening (8, 14, or 18 units based on BSG) * Bolus insulin * NovoLog per scale ACHS or Q6hrs while NPO * Goal Range: Low 120 mg/dL - High 150 mg/dL * Correction Factor: 20 mg/dL/unit * Nutritional / Prandial insulin per carb ratio of 1 unit per 7 grams CHO consumed PLAN FOR DISCHARGE: * Given high HbA1c and T1DM status, may consider: * Basal insulin [weight based stress of 1 (0.2 unit/kg)] * 8 units BID OR * 16 units qam * Bolus insulin (Between a weight based stress of 1 and 2) * NovoLog per scale ACHS * Goal Range: Low 120 mg/dL - High 150 mg/dL * Correction Factor: 30 mg/dL/unit * Nutritional / Prandial insulin per carb ratio of 1 unit per 15 grams CHO consumed * Close monitoring and quick titration of both basal and bolus insulin may be necessary, given insulin requirements while in the hospital
--- NOTE | 2019-01-13 11:08 | Hospitalist Progress Note ---
Date of Service January 13, 2019 Assessment & Plan (1) DKA (diabetic ketoacidoses): Patient is a 33 yr male with H/O PTSD, disassociated identity disorder, major depressive disorder with psychotic features who presents to [facility] secondary to abdominal pain x1.5 weeks. DKA: CXR:negative for acute abnormality. CT abd: negative for acute abnormality given abdominal pain, noted Rectus diastases with small fat-containing umbilical hernia containing a knuckle small bowel no evidence of obstruction. UA not suggestive of UTI Normal Lactate levels Anion gap normalized Acidosis resolved A1C:11.0 Insulin drip >>Transitioned to SQ Appreciate Glycemic pharmacy help Tolerating diet Received IV fluids Monitor BGs clinical informatics educator consulted Continue supportive care Hyperlipidemia: Start on lipitor (2) Metabolic acidosis: Management as above (3) KAROLINE (acute kidney injury): Resolved with IV fluids Cr:1.5>>1.2>>0.86 Monitor renal function (4) Abdominal pain: Likely secondary to DKA Resolved Continue bowel regimen, ranitidine (5) Blood in stool: H/O Stomach CA S/P resection DD:diverticular bleed, hemorrhoidal bleed, fissure, polyp, malignancy Monitor H&H Continue bowel regimen Planned for outpatient EGD/Colonoscopy Appreciate GI input Continue PPI (6) History of stomach cancer: Patient states H/O stomach cancer at age 17, has had no recurrence Followed oncologist up in [facility] (7) PTSD (post-traumatic stress disorder): (8) Dissociative identity disorder: (9) Major depression with psychotic features: Continue chlorpromazine, escitalopram, lithium lithium level:0.2 stable (10) DVT prophylaxis: SCDS/TEDS Re: GI Bleed Disposition: D/C back to [facility] Patient is seen and examined at bedside No recurrence of bleeding Abd pain resolved Hb stable Discussed with GI yesterday -- Plan for Scope as outpatient Denies chest pain, SOB, dizziness, nausea Tolerated diet Guards at bedside Review of Systems Review of Systems: All systems reviewed & are unremarkable except as noted in HPI & below Physical Exam Physical Exam: Physical Exam: Vitals signs as noted above General Appearance:Moderately built and nourished, no apparent distress Head: normocephalic, Atraumatic Eyes: normal inspection, EOMI Neck: supple, Trachea midline Respiratory/Chest: Normal breath sounds, CTA Cardiovascular: S1, S2, No murmur Abdomen/GI:Soft, non tender, Bowel sounds present Extremities/Musculoskelatal:normal inspection, no edema Neurologic/Psych:AAOX3, grossly no focal neurological deficits Skin: normal color, warm Results & Data Vital Signs (Past 12 Hours) Vital Signs Temp Pulse Resp BP Pulse Ox 01/13/19 07:02 36.8 C 79 14 123/79 100 01/13/19 03:49 36.9 C 78 17 112/61 98 01/12/19 23:14 37.0 C 79 18 142/83 H 97 Laboratory Results Short CBC 01/12/19 01/13/19 Range/Units 16:33 05:33 Hgb 12.9 L 12.5 L (14.0-18.0) g/dL Hct 35.8 L 34.8 L (42-52) % BMP 01/13/19 05:33 Sodium 137 Potassium 3.5 D Chloride 106 Carbon Dioxide 28 BUN 11 Creatinine 0.86 Glucose 152 H Calcium 8.5 (1) Abdominal pain Abdominal location: unspecified location Qualified Code(s): R10.9 - Unspecified abdominal pain
--- NOTE | 2019-01-13 11:59 | Discharge Summary ---
Date of Service January 13, 2019 Admission HPI Per Admitting Provider This is a 33-year-old male who has a significant PMH of PTSD, disassociated identity disorder, major depressive disorder with psychotic features who presents to [facility] secondary to abdominal pain x1.5 weeks. He complains of nausea, emesis, inability to tolerate liquid or solid food, lightheadedness, dizziness, syncopal episode once a day that were unwitnessed, substernal chest pain that would come and go unrelated to rest or exertion, abdominal pain that is constant, located left upper quadrant and right lower quadrant, polyuria, polydipsia. Last BM was 4 days ago. "I wish I could just move my bowels I need something to move my bowels." When he had a BM 4 days ago he noted dark red blood on toilet paper and in stool as well as painful defecating. Nothing has made symptoms improve. "I thought they would just go away." Syncope episodes were unwitnessed and he is unsure how long he was down, states one incidence is when a CO caught him prior to falling. He could feel lighthea dedness and dizziness prior to passing out. He denies any other recent illness, fever, chills, sweats, shortness of breath, dysuria, hematuria. Appetite has overall been reduced as he is unable to t olerate oral intake. He denies any recent drug use. He has positive family history of diabetes in mother, aunt, brother but unknown what type. Outside of psychiatric illnesses he denies any significant past medical illnesses except stomach cancer when he was 17 years old that was surgically resected. Admission Exam Per Admitting Provider Gen: WD/WN, ill-appearing, -Filipino, male, lying in bed, answers questions appropriately Head: Normocephalic, Atraumatic Eyes: Sclera normal, no conjunctival injection, PERRLA, EOMI ENT: Gross hearing intact, normal pharynx, mucous membranes moist with thickened salivary secretions Neck: supple, no adenopathy, No JVD, no bruit, Resp: Clear to auscultation b/l, no wheeze, rales, rhonchi. Normal insp/exp effort, no accessory muscle use CV: Tachycardic rate, regular rhythm, no murmur, rub, gallop, or ectopy Abd: +BS x 4, mildly distended, tender to palpation throughout, no rebound, guarding or rigidity. Musculoskeletal: moves extremities active rom x 4, strength intact, good sports journalist strength Extremities: No edema bilaterally Skin: warm, moist, no rash,mild turgor, cap refill < 2sec Neuro: Alert and oriented x 3, speech normal, flat mood/affect, cran nerve 2-12 intact grossly : deferred Principal Diagnosis Discharge Information Discharge Diagnosis DKA Blood in Stool KAROLINE Discharge Goals Decrease discomfort,Improve disease control, Improve function Discharge Activity Limitations Resume your previous activity Discharge Data Allergies Allergy/AdvReac Type Severity Reaction Status Date / Time shellfish derived Allergy Intermediate throat Verified 01/10/19 17:57 closes Consultations 01/10/19 17:36 ED Decision to Admit Stat 01/10/19 21:04 Consult Case Management - Discharge Planning Routine Consult Gastroenterology Routine Procedures Performed CT ABD: 1. No acute intra-abdominal or pelvic findings 2. No evidence of bowel obstruction. No evidence of free air 3. Normal appendix. No evidence of diverticulitis. 4. Rectus diastases. Small fat-containing umbilical hernia containing a knuckle of small bowel. There is no current evidence of obstruction CXR: Negative chest. Ordered Studies 01/10/19 15:41 CT abd pelvis IV con only Stat Hospital Course (1) DKA (diabetic ketoacidoses): Patient is a 33 yr male with H/O PTSD, disassociated identity disorder, major depressive disorder with psychotic features who presents to [facility] secondary to abdominal pain x1.5 weeks. DKA: CXR:negative for acute abnormality. CT abd: negative for acute abnormality given abdominal pain, noted Rectus diastases with small fat-containing umbilical hernia containing a knuckle small bowel no evidence of obstruction. UA not suggestive of UTI Normal Lactate levels Anion gap normalized Acidosis resolved A1C:11.0 Insulin drip >>Transitioned to SQ Appreciate Glycemic pharmacy help Tolerating diet Received IV fluids Monitor BGs supervising editor trailer consulted Continue supportive care Hyperlipidemia: Start on lipitor (2) Metabolic acidosis: Management as above (3) KAROLINE (acute kidney injury): Resolved with IV fluids Cr:1.5>>1.2>>0.86 Monitor renal function (4) Abdominal pain: Likely secondary to DKA Resolved Continue bowel regimen, ranitidine (5) Blood in stool: H/O Stomach CA S/P resection DD:diverticular bleed, hemorrhoidal bleed, fissure, polyp, malignancy Monitor H&H Continue bowel regimen Planned for outpatient EGD/Colonoscopy Appreciate GI input Continue PPI (6) History of stomach cancer: Patient states H/O stomach cancer at age 17, has had no recurrence Followed oncologist up in [facility] (7) PTSD (post-traumatic stress disorder): (8) Dissociative identity disorder: (9) Major depression with psychotic features: Continue chlorpromazine, escitalopram, lithium lithium level:0.2 stable (10) DVT prophylaxis: SCDS/TEDS Re: GI Bleed Disposition: D/C back to [facility] Total Time Total Time Spent Total Time Spent (In Minutes): 38 minutes Total Time Includes: Examination of the Patient, Discharge Planning, Medication Reconciliation, Communication With Other Providers and Other Discharge Plan Discharge Items [facility]position[facility] Reason For Visit: DKA Discharge Diagnosis: DKA Blood in Stool KAROLINE Discharge Goals: Decrease discomfort, Improve disease control and Improve function Activity: Resume your previous activity Exercise/Sports: Gradually increase as tolerated Non-emergency contact: Primary Care Provider Call non-emergency contact if: you have any medication questions, your symptoms worsen, your pain is not controlled, your pain is worsening, your pain is unusual for you, your pain is concerning for you and you have a fever Follow-up/Referrals: Brian BALDERRAMA [Primary Care Provider] - Diet: Carb Count or DM1 Addtl Provider Instructions: Follow up with your Physician at [facility] in 1 week Follow up with your Social Media Director and get EGD/Colonoscopy as outpatient Discuss with your Physician regarding Insulin Therapy and titration as required Check you Blood Sugar levels regularly as advised Seek immediate medical attention if your symptoms reoccur or worsen Insulin Therapy Instructions: Lantus Insulin: 8 units BID OR 16 units QAM Novolog insulin: Take 1 unit per 15 grams CHO consumed Your Target blood glucose goal range: 120-150 mg/dl Close monitoring and quick titration of both basal and bolus insulin may be necessary, given insulin requirements while in the hospital Recommendations for Insulin Therapy: Given high HbA1c and T1DM status, may consider: Basal insulin [weight based stress of 1 (0.2 unit/kg)] 8 units BID OR 16 units qam Bolus insulin (Between a weight based stress of 1 and 2) NovoLog per scale ACHS Goal Range: Low 120 mg/dL - High 150 mg/dL Correction Factor: 30 mg/dL/unit Nutritional / Prandial insulin per carb ratio of 1 unit per 15 grams CHO consumed Close monitoring and quick titration of both basal and bolus insulin may be necessary, given insulin requirements while in the hospital Prescriptions: New docusate sodium 100 mg Capsule 100 mg PO BID 30 Days Qty: 60 RF: 0 polyethylene glycol 3350 [Miralax] 17 gram Powder In Packet 17 g PO DAILY PRN (Reason: constipation) 30 Days Qty: 30 RF: 0 pantoprazole 40 mg Tablet,Delayed Release (Dr/Ec) 40 mg PO BID 30 Days Qty: 60 RF: 0 Lantus Solostar U-100 Insulin 100 unit/mL (3 mL) Insulin Pen 8 units SC Q12 Qty: 15 RF: 0 Novolog Flexpen U-100 Insulin 100 unit/mL (3 mL) Insulin Pen 1 units SC ACHS Qty: 15 RF: 0 Continued lithium carbonate 450 mg Tablet Extended Release 450 mg PO HS RF: 0 chlorpromazine 50 mg Tablet 50 mg PO HS RF: 0 escitalopram oxalate 10 mg Tablet 30 mg PO DAILY RF: 0 Discontinued ranitidine HCl 150 mg Tablet 150 mg PO BID RF: 0 Stand-Alone Forms: Call Back Authorization, [facility] Discharge Orders: Discharge Order (Routine); Ordered 01/13/19 Ordered By: Avinash Granados Admission Data Admit Date/Time: 01/10/19 18:45 Attending Provider: Avinash Granados Admit Provider: Anjali Castellanos Primary Care Provider: Brian BALDERRAMA Other Providers: aDhlia Jeter ; Anjali Castellanos Service: Telemetry Other Interventions: Discharge Summary Assessment (RN) Last Done: 01/13/19 12:46 Pending Studies at Discharge: No DC Date/Time DO NOT enter until pt leaves facility: 01/13/19 13:15
[2019-01-13 23:05] LABS: Hydrocodone Urine NEGATIVE NG/ML (CUTOFF=50); Hydromor Urine NEGATIVE NG/ML (CUTOFF=50); Morphine Urine 300 NG/ML (CUTOFF=50); Norhydrocodone Conf Ur NEGATIVE NG/ML (CUTOFF=50); Noroxycodone Urine NEGATIVE NG/ML (CUTOFF=50); Oxycodone Urine NEGATIVE NG/ML (CUTOFF=50)
== END 2019-01-13 13:15 | DRG 638 ==
LOC: EDBD → ED 15:26 → 2E 18:45